=== PATIENT | male | born 1960 | race Caucasian/White ===

== ENCOUNTER 2021-09-18 08:47 | Outpatient (REF) | payer OTHER, SELFPAY ==
--- NOTE | ~2021-09-18 | US_ITS ---
EXAMINATION: US ABDOMEN COMPLETE CLINICAL INFORMATION: Epigastric pain. COMPARISON: None TECHNIQUE: Real-time imaging of the abdominal viscera. FINDINGS: PANCREAS: Normal. ABDOMINAL AORTA: The proximal, mid, and distal segments are normal in caliber. INFERIOR VENA CAVA: Visualized portions are normal. LIVER: The liver is normal in size. The liver contour is normal. There is diffuse increased liver parenchymal echogenicity, consistent with steatosis or other infiltrative hepatocellular disease. No focal hepatic lesion. There is no intrahepatic biliary duct dilatation seen. GALLBLADDER: Normal. The gallbladder is physiologically distended without evidence of stones, sludge, polyps, wall thickening or pericholecystic fluid. COMMON BILE DUCT: Normal in caliber measuring 0.5 cm in diameter. RIGHT KIDNEY: Normal. No hydronephrosis. No renal calculi or focal parenchymal lesions. The kidney measures 9.4 cm in maximum dimension. LEFT KIDNEY: Normal. No hydronephrosis. No renal calculi or focal parenchymal lesions. The kidney measures 9.6 cm in maximum dimension. SPLEEN: Normal. The spleen measures 10.3 cm in maximum dimension. FREE FLUID: None. US/US abdomen complete IMPRESSION: Hypoechoic, heterogeneous liver parenchyma suggesting steatosis or other infiltrative hepatocellular disease.
== END 2021-09-18 08:48 | disposition home or self-care (01) ==
LOC: HO.HMGCX 08:47
PROVIDERS: PCP Internal Medicine; Visit Provider Internal Medicine
DX: R10.13 Epigastric pain (principal)
CPT/HCPCS: 76700

== ENCOUNTER 2021-10-02 10:03 | Outpatient (REF) | payer OTHER, SELFPAY ==
[2021-10-02 12:10] LABS: Alanine Aminotransferase 24 U/L (0-40); Anion Gap 16 (12-20); Aspartate Amino Transferase 25 U/L (5-37); Blood Urea Nitrogen 12 mg/dL (9-16); Calcium 9.9 mg/dL (8.4-10.2); Carbon Dioxide 26 mmol/L (22-29); Chloride 96 mmol/L (96-108); Cholesterol 271 mg/dL; Estimated Glomerular Filt Rate > 60; Glucose Fasting 109 mg/dL (60-99); HDL Cholesterol 88 mg/dL; LDL Cholesterol Calculated 166 mg/dl; Potassium 4.9 mmol/L (3.3-5.1); Sodium 133 mmol/L (135-145); Triglycerides 88 mg/dL
[2021-10-02 12:17] LABS: PSA,Total (Free>4and<10) 1.37 ng/mL (0.00-4.00)
== END 2021-10-02 10:04 | disposition home or self-care (01) ==
LOC: HO.HMGCLDS 10:03
PROVIDERS: PCP Internal Medicine; Visit Provider Internal Medicine
DX: Z00.01 Encounter for general adult medical examination with abnormal findings (principal); Z12.5 Encounter for screening for malignant neoplasm of prostate; I10 Essential (primary) hypertension; E78.5 Hyperlipidemia, unspecified; R73.01 Impaired fasting glucose
CPT/HCPCS: 36415; 80048; 80061; 84153; 84450; 84460

== ENCOUNTER 2021-10-29 07:21 | Day surgery (SDC) | payer OTHER, SELFPAY ==
[2021-09-24 11:59] VITALS: BMI 27.8
--- NOTE | 2021-10-26 13:31 | P.CONAN_ITS ---
Documented by User: Marie Castaneda NP 10/26/21 13:32 HPI - Anesthesia Eval Consult details Narrative: 60yo M for Upper Endoscopy and Colonoscopy [facility] Active Problems Active Problems: All Active Problems (Updated 09/21/21 @ 15:14 by Anuradha Rajan RN) Impaired fasting glucose (Acute) COPD (chronic obstructive pulmonary disease) (Acute) Dyslipidemia (Acute) Essential hypertension (Acute) IBS (irritable bowel syndrome) (Acute) Heartburn symptom (Acute) Past Medical History Medical History Arthritis COPD (chronic obstructive pulmonary disease) Dyslipidemia Essential hypertension GERD (gastroesophageal reflux disease) Heartburn symptom IBS (irritable bowel syndrome) Impaired fasting glucose Tubular adenoma of colon Family History Family History Mother Colon cancer Surgical History Surgical History Hx of colonoscopy Hx of repair of rotator cuff Social History Social History Housing: House Patient Tobacco Use Status: Former Tobacco user Quit Date: 15 years ago Years Smoked: 30 yrs e-Cigarette/Vaping Use: Never Used Use of substances other than those prescribed or required for medical reasons: No Are you DNR?: No Advance Directives: No Advance Directives Information Provided: No Advance Directives on File: No service: No Current occupational status: employed Meds Allergies Allergy/AdvReac Type Severity Reaction Status Date / Time No Known Allergies Allergy Verified 10/29/21 08:25 [No Known Allergies*] Home Medications Medication Instructions Recorded Confirmed Last Taken Type amlodipine 10 mg tablet 10 mg PO DAILY 06/21/21 10/02/21 Unknown History Exam Exam Date and Time: October 26, 2021 1331 Height,Weight and Vital Signs: Height 5 ft 8.25 in Weight 83.461 kg Assessment and Plan Assessment Anesthesia Assessment: Chart Reviewed Documented by User: Melany Palma MD 10/29/21 08:37 [facility] Active Problems Active Problems: All Active Problems (Updated 09/21/21 @ 15:14 by Anuradha Rajan RN) Impaired fasting glucose (Acute) COPD (chronic obstructive pulmonary disease) (Acute) Dyslipidemia (Acute) Essential hypertension (Acute) IBS (irritable bowel syndrome) (Acute) Heartburn symptom (Acute) Past Medical History Medical History Arthritis COPD (chronic obstructive pulmonary disease) Dyslipidemia Essential hypertension GERD (gastroesophageal reflux disease) Heartburn symptom IBS (irritable bowel syndrome) Impaired fasting glucose Tubular adenoma of colon Family History Family History Mother Colon cancer Family history of problems with anesthesia: No Surgical History Surgical History Hx of colonoscopy Hx of repair of rotator cuff History of Problems with Anesthesia: No Social History Social History Housing: House Patient Tobacco Use Status: Former Tobacco user Quit Date: 15 years ago Years Smoked: 30 yrs e-Cigarette/Vaping Use: Never Used Use of substances other than those prescribed or required for medical reasons: No Are you DNR?: No Advance Directives: No Advance Directives Information Provided: No Advance Directives on File: No service: No Current occupational status: employed Meds Allergies Allergy/AdvReac Type Severity Reaction Status Date / Time No Known Allergies Allergy Verified 10/29/21 08:25 [No Known Allergies*] Home Medications Medication Instructions Recorded Confirmed Last Taken Type amlodipine 10 mg tablet 10 mg PO DAILY 06/21/21 10/02/21 Unknown History Exam Height,Weight and Vital Signs: Height 5 ft 8.25 in Weight 83.461 kg Vital Signs Temp Pulse Resp BP Pulse Ox 10/29/21 07:51 98.6 F 88 18 157/78 H 97 Airway Mallampati Class: II TM Dist: >3cm Neck ROM: Full Heart: RRR Lungs: Bilateral wheezes. Did not use his inhaler this morning Assessment and Plan Assessment Anesthesia Assessment: Anesthesia Plan Discussed Final Anesthetic Review Family History of Problems with Anesthesia: No History of Problems with Anesthesia: No NPO: Yes ASA Class: II Final Preanesthetic Review: No Changes in Pt Med Stat, Meds/Allgs Chart Reviewed, Consent Obtained/Reviewed and Anes Risks/Benef Reviewed Patient Risk: Intermediate Procedure Risk: Low Assessment/Block/Sedation in SS: Assess/Block/Sedation-SS Anesthetic Plan Anesthetic Plan: MAC: Disposition: Standard PACU
[2021-10-29 07:51] VITALS: BP 157/78; PULSE 88; RESP 18; TEMP 37; O2SAT 97
[2021-10-29] MEDS: Lactated Ringers 1,000 ML 100 ML IVCONT (08:21)
[2021-10-29] MEDS: Albuterol Sulfate (0.083%) 2.5 MG/3 ML VIAL.NEB INHALE (08:49)
[2021-10-29 09:46] VITALS: BP 88/52; PULSE 78; RESP 16; TEMP 36.3; O2SAT 98
--- NOTE | 2021-10-29 09:52 | P.BOP_ITS ---
Brief Operative Note Date of Service: 10/29/21 Pre-op diagnosis: Abd. pain, Screening Post-op diagnosis: other (Inflammatory mass at EG Junction, Hiatal hernia, Rectal polyps) Procedure: EGD with biopsies, Colonoscopy to the cecum and TI with biopsy/removal of polyps Surgeon: Frandy Child Anesthesia: MAC Was an Equipment Operator/Laborer/Supervisor used for this Procedure?: No Estimated blood loss (mL): 2.0 Pathology: other (A. Mass at EG Junction at 38cm B. Rectal polyps) Condition: stable Disposition: PACU
[2021-10-29 10:01] VITALS: BP 124/66; PULSE 74; RESP 16; TEMP 36.3; O2SAT 95
--- NOTE | 2021-10-29 10:59 | OP_ITS ---
SURGEON: Frandy Child MD INDICATIONS: The patient presents for evaluation of abdominal discomfort, personal history of tubular adenoma of the colon, and colorectal cancer screening. Full consent has been obtained from him for this, including risks of bleeding and perforation. PREOPERATIVE DIAGNOSIS: POSTOPERATIVE DIAGNOSIS: PROCEDURE PERFORMED: Esophagogastroduodenoscopy with biopsies and colonoscopy to cecum and terminal ileum with biopsy and removal of polyps. ESTIMATED BLOOD LOSS: COMPLICATIONS: ANESTHESIA: Monitored anesthesia care. ASSISTANTS: SPECIMENS: PREOPERATIVE DIAGNOSES: Abdominal pain, personal history of tubular adenoma of the colon, and colorectal cancer screening. POSTOPERATIVE DIAGNOSES: Abdominal pain, personal history of tubular adenoma of the colon, colorectal cancer screening, gastroesophageal reflux with ulceration and mass at gastroesophageal junction, hiatal hernia, rectal polyps, diverticulosis, and internal hemorrhoids. DESCRIPTION OF PROCEDURE: The patient was placed in the left lateral decubitus position. The Olympus video gastroscope was passed into the posterior oropharynx and upper esophagus under direct vision. The scope was passed slowly into the distal esophagus. The gastroesophageal junction appeared at 38 cm. This area was slightly irregular with some less than 1 cm areas of possible Mathew mucosa. Extending from the EG junction at 38 cm into the hiatal hernia was an area of some ulceration, friability, and edema suspicious for mass. This was at approximately the 12 o'clock position at the EG junction and extended into the hiatal hernia along the fold. It was by no means circumferential nor obstructing. The remainder of the hiatal hernia, which was moderate in size, appeared normal. The scope was advanced to the pylorus, and the duodenum was cannulated to the descending portion. The duodenum including the bulb appeared normal without mass or ulceration. The scope was withdrawn back to the stomach. The gastric antrum and body appeared normal with good peristalsis. The scope was retroflexed visualizing the proximal stomach carefully, which appeared normal without any definitive visible signs of the mass. The scope was straightened. In the forward viewing position, the mass was well visualized and multiple biopsies were obtained from it. Again, this began just at the EG junction and extended several centimeters into the hiatal hernia. Proximal to the EG junction, the esophageal mucosa appeared normal. The scope was withdrawn from the patient. He tolerated the procedure well and was turned around for the colonoscopy. The digital rectal exam revealed no abnormalities. The Olympus video pediatric colonoscope was entered into the rectum and advanced easily to the cecum. Once in the cecum, I did identify normal-appearing cecal pouch with appendiceal orifice and a normal-appearing ileocecal valve. The terminal ileum was cannulated and appeared normal. The scope was withdrawn back in the colon. The entire cecum and ileocecal valve appeared normal. The scope was slowly withdrawn assessing all mucosal surfaces carefully. Preparation was excellent. In the rectum were 2 flat less than 5 mm polyps, which were each biopsied and completely removed with cold biopsy forceps. I did not visualize any other polyps, colitis, or angiodysplasias. There was a mild amount of sigmoid diverticulosis. In the rectum, the scope was retroflexed visualizing small internal hemorrhoids, but no other pathology. The rectal mucosa appeared normal. The scope was straightened and withdrawn from the patient. He tolerated both procedures well and was returned to the recovery area in stable condition. IMPRESSION: 1. Ulcerated area from esophagogastric junction into the hiatal hernia, suspicious for mass and neoplasm, status post biopsy. 2. Moderate-sized hiatal hernia. 3. Small rectal polyps. 4. Diverticulosis. 5. Internal hemorrhoids. PLAN: The results of the pathology will be checked. He has been using omeprazole 20 mg daily and I have instructed him to use that twice a day for the time being. Further plans will be made depending upon the pathology. I would recommend a repeat colonoscopy in 5 years theoretically in regard to the previous history of tubular adenomas. He has been advised to avoid all aspirin and NSAIDs, as well as to try to avoid alcohol completely as well. This has been discussed with his . MD JOVANNY Hernandez/SUNDEEP / [id number] MTDRemy
== END 2021-10-29 10:36 | disposition home or self-care (01) ==
PROVIDERS: PCP Internal Medicine; Visit Provider Internal Medicine
PROC: (CPT 45380; principal; 2021-10-29 08:30)
DX: Z12.11 Encounter for screening for malignant neoplasm of colon (principal); Z86.010 Personal history of colon polyps; Z80.0 Family history of malignant neoplasm of digestive organs; K62.1 Rectal polyp; K57.30 Diverticulosis of large intestine without perforation or abscess without bleeding; K64.8 Other hemorrhoids; C16.0 Malignant neoplasm of cardia; R10.13 Epigastric pain; K44.9 Diaphragmatic hernia without obstruction or gangrene; I10 Essential (primary) hypertension; J44.9 Chronic obstructive pulmonary disease, unspecified; Z79.899 Other long term (current) drug therapy; Z87.891 Personal history of nicotine dependence
CPT/HCPCS: 45380; 43239; 36415; 88305; 88360; 88374; 88377; J3010

== ENCOUNTER 2021-11-01 16:47 | Outpatient (REF) | payer OTHER, SELFPAY ==
[2021-11-01 17:19] LABS: Basophils Absolute Auto 0.1 X10*3/uL (0.0-0.2); Basophils Percent Auto 0.5 % (0-2); Eosinophils Absolute Auto 0.1 X10*3/uL (0.0-0.4); Hematocrit 41.4 % (42.0-52.0); Hemoglobin 14.6 g/dl (14.0-18.0); Imm Gran Abs Auto 0.09 X10*3/uL (0.00-0.03); Imm Gran Pct Auto 0.7 % (0.0-0.4); Lymphocytes Absolute Auto 2.3 X10*3/uL (1.2-4.9); Lymphocytes Percent Auto 19.3 % (20-40); MANUAL DIFF FLAG SCAN; Mean Corpuscular HGB Conc 35.3 g/dl (31.0-36.0); Mean Corpuscular Hemoglobin 30.7 pg (27.0-33.0); Mean Corpuscular Volume 87.2 fL (80.0-98.0); Mean Platelet Volume 9.5 fL (9.4-12.4); Monocytes Absolute Auto 1.6 X10*3/uL (0.1-1.2); Monocytes Percent Auto 13.2 % (2-11); Neutrophils Absolute Auto 7.9 x10*3/uL (2.0-8.3); Neutrophils Percent Auto 65.3 % (45-73); Platelet Count 332 X10*3/uL (160-400); Red Blood Count 4.75 X10*6/uL (4.60-5.80); Red Cell Distribution Width 13.2 % (11.0-16.0); SCAN SMEAR FLAG 1; White Blood Count 12.1 X10*3/uL (4.8-10.8)
[2021-11-01 17:43] LABS: Alanine Aminotransferase 24 U/L (0-40); Albumin Level 4.5 g/dL (3.5-5.0); Alkaline Phosphatase 88 U/L (39-117); Aspartate Amino Transferase 23 U/L (5-37); Bilirubin Direct 0.3 mg/dL (0.0-0.5); Bilirubin Total 0.5 mg/dL (0.0-1.0); Blood Urea Nitrogen 13 mg/dL (9-16); Estimated Glomerular Filt Rate > 60; Total Protein 7.9 g/dL (6.5-8.0)
[2021-11-01 17:48] LABS: SLIDE REVIEW VERIFIED
== END 2021-11-01 16:48 | disposition home or self-care (01) ==
LOC: HO.LAB 16:47
PROVIDERS: PCP Internal Medicine; Visit Provider Internal Medicine
DX: C16.0 Malignant neoplasm of cardia (principal)
CPT/HCPCS: 36415; 80076; 82378; 82565; 84520; 85025

== ENCOUNTER 2021-11-07 11:53 | Outpatient (REF) | payer OTHER, SELFPAY ==
--- NOTE | ~2021-11-07 | CT_ITS ---
EXAMINATION: CT CHEST WITH CONTRAST CLINICAL INFORMATION: Malignant neoplasm of stomach COMPARISON: Previous chest CT December 2012 TECHNIQUE: Multidetector volumetric CT imaging of the chest was obtained after the administration of 85 mL of Omnipaque 350 intravenous contrast without immediate adverse reactions. Axial MIP volume rendering provided. Sagittal and coronal reformatted images were obtained. This CT examination was performed using dose optimization techniques as appropriate, variously including the following: *Automated exposure control *Adjustment of mA and/or kV according to patient size (this includes techniques or standardized protocols for targeted exams where dose is matched to indication/reason for exam; i.e. extremities or head) *Use of iterative reconstruction technique DLP: 172 mGy-cm FINDINGS: LUNGS: There is evidence of emphysema. There is a scarring or subsegmental atelectasis in the left lower lobe axial image 250 series 4. This is a new finding from December 2012 exam. There is linear scarring or subsegmental atelectasis in the lateral left lower lobe for example axial image 300 series 4 that is stable. There is linear scarring or subsegmental atelectasis in the posterior left lower lobe for example axial image 302 series 4 and at the left lung base for example axial image 411 series 4 that is new or increased from 2013. MEDIASTINUM: There is mild coronary artery calcification. There is abnormal wall thickening and question mass of the distal thoracic esophagus/upper stomach, for example coronal reconstructed images 43-45 and sagittal reconstructed image 56. There are no enlarged hilar or mediastinal lymph nodes. The heart does not appear enlarged. There is mild coronary artery calcification. There is no pericardial effusion. The thoracic aorta is normal in caliber. The visualized thyroid gland is normal. PLEURA: There is no pleural effusion. No pleural mass or thickening. AXILLA: No lymphadenopathy. UPPER ABDOMEN: See CT of the abdomen and pelvis done the same day. OSSEOUS STRUCTURES: There are old left-sided rib fractures. There are mild degenerative changes of the spine. CT/CT chest w con IMPRESSION: Abnormal wall thickening and question mass of the distal thoracic esophagus/proximal stomach. No adenopathy is seen. Emphysema. New areas of linear scarring or subsegmental atelectasis in the left lower lobe. Fleischner guidelines were followed.
--- NOTE | ~2021-11-07 | CT_ITS ---
EXAMINATION: CT ABDOMEN AND PELVIS WITH CONTRAST CLINICAL INFORMATION: Malignant neoplasm of cardia. COMPARISON: None TECHNIQUE: Multidetector volumetric images were obtained from the superior aspect of the liver through the pubic symphysis following administration 85 mL of Omnipaque 350 intravenous contrast. Sagittal and coronal reformatted images were obtained on the technologist's workstation. Oral contrast: No. This CT examination was performed using dose optimization techniques as appropriate, variously including the following: *Automated exposure control *Adjustment of mA and/or kV according to patient size (this includes techniques or standardized protocols for targeted exams where dose is matched to indication/reason for exam; i.e. extremities or head) *Use of iterative reconstruction technique DLP: 522 mGy-cm FINDINGS: LUNG BASES: Minimal atelectasis or scarring seen at the left lung base. Heart size is normal. There is mild thickening of the distal esophagus/GE junction. LIVER, GALLBLADDER, AND BILIARY TREE: The liver is normal in size, shape, and diffusely attenuated. No focal hepatic lesion or biliary ductal dilatation is present. The gallbladder is unremarkable with no evidence of radiopaque gallstones, gallbladder wall thickening, or obvious pericholecystic inflammatory changes. PANCREAS: Unremarkable. SPLEEN: Unremarkable. ADRENAL GLANDS: Unremarkable. KIDNEYS AND URETERS: The kidneys are normal in size, shape, and attenuation. No hydronephrosis, hydroureter, or calculi seen. No perinephric stranding. BLADDER: The bladder is nondistended with mild bladder wall thickening. GASTROINTESTINAL TRACT: There is mild mural thickening of small bowel segment in the left midabdomen visualized on coronal image 23/6. It most likely involves mid jejunum and distal ileal loops. There is contrast opacified normal caliber colon without any significant mural thickening. The appendix is normal caliber. No free air or free fluid seen. ABDOMINAL WALL: No significant hernia is appreciated. LYMPH NODES: There are small scattered mesenteric lymph nodes. The largest lymph node measures 5 mm on axial image 37/3. VASCULAR: There is atherosclerotic calcification of the abdominal aorta without aneurysmal dilatation. PELVIC VISCERA: There is no free air or free fluid. OSSEOUS STRUCTURES: There are degenerative disc changes and vacuum disc phenomena at the L5-S1 disc level. CT/CT abdomen pelvis w con IMPRESSION: Mild thickening of the GE junction and distal esophagus. The rest of the stomach appears normal. There is mild nonspecific mural thickening of mid jejunal and distal ileal loops without distention. No abnormal mesenteric or retroperitoneal lymph nodes seen. Fleischner guidelines were followed.
[2021-11-07] MEDS: iohexoL 350 MG/ML 100 ML INFUS..BTL IV (14:55)
[2021-11-07] MEDS: Barium Sulfate Oral (Berry) 450 ML ORAL.SUSP 900 ML PO (14:57)
== END 2021-11-07 11:54 | disposition home or self-care (01) ==
LOC: HO.CT 11:53
PROVIDERS: PCP Internal Medicine; Visit Provider Internal Medicine
DX: C16.0 Malignant neoplasm of cardia (principal)
CPT/HCPCS: 71260; 74177; Q9967

== ENCOUNTER 2022-09-10 08:35 | Outpatient (REF) | payer OTHER, SELFPAY ==
[2022-09-10 11:11] LABS: MANUAL DIFF FLAG NO
[2022-09-10 11:31] LABS: Basophils Percent Auto 0.4 % (0-2); Eosinophils Absolute Auto 0.2 X10*3/uL (0.0-0.4); Eosinophils Percent Auto 1.9 % (0-4); Hemoglobin 13.4 g/dl (14.0-18.0); Imm Gran Abs Auto 0.05 X10*3/uL (0.00-0.03); Imm Gran Pct Auto 0.6 % (0.0-0.4); Mean Corpuscular HGB Conc 34.4 g/dl (31.0-36.0); Mean Corpuscular Hemoglobin 29.8 pg (27.0-33.0); Mean Corpuscular Volume 86.9 fL (80.0-98.0); Mean Platelet Volume 9.9 fL (9.4-12.4); Monocytes Absolute Auto 1.1 X10*3/uL (0.1-1.2); Monocytes Percent Auto 13.5 % (2-11); Neutrophils Absolute Auto 5.5 x10*3/uL (2.0-8.3); Neutrophils Percent Auto 70.6 % (45-73); Platelet Count 331 X10*3/uL (160-400); Red Blood Count 4.49 X10*6/uL (4.60-5.80); Red Cell Distribution Width 13.1 % (11.0-16.0); White Blood Count 7.8 X10*3/uL (4.8-10.8)
[2022-09-10 13:19] LABS: Alanine Aminotransferase 25 U/L (0-40); Albumin Level 4.2 g/dL (3.5-5.0); Alkaline Phosphatase 130 U/L (39-117); Anion Gap 13 (12-20); Aspartate Amino Transferase 21 U/L (5-37); Bilirubin Total 0.5 mg/dL (0.0-1.0); Blood Urea Nitrogen 7 mg/dL (9-16); Calcium 9.5 mg/dL (8.4-10.2); Carbon Dioxide 26 mmol/L (22-29); Chloride 96 mmol/L (96-108); Cholesterol 229 mg/dL; Estimated Glomerular Filt Rate > 60; Glucose Fasting 80 mg/dL (60-99); HDL Cholesterol 45 mg/dL; Iron 97 mcg/dL (45-160); LDL Cholesterol Calculated 141 mg/dl; Percent Iron Saturation 40 % (15-50); Potassium 4.5 mmol/L (3.3-5.1); Sodium 130 mmol/L (135-145); Total Iron Binding Capacity 244 mcg/dL (228-428); Triglycerides 216 mg/dL; Unsaturated Iron Binding 147 ug/dL; Vitamin D 25-OH Total 14.8 ng/mL (>30)
[2022-09-10 13:29] LABS: Folate 9.7 ng/mL (> or = 4.0); Vitamin B12 258 pg/mL (200-900)
== END 2022-09-10 08:36 | disposition home or self-care (01) ==
LOC: HO.HMGCLDS 08:35
PROVIDERS: PCP Internal Medicine; Visit Provider Internal Medicine
DX: M79.2 Neuralgia and neuritis, unspecified (principal); D64.9 Anemia, unspecified; R73.01 Impaired fasting glucose; I10 Essential (primary) hypertension; E78.5 Hyperlipidemia, unspecified
CPT/HCPCS: 36415; 80053; 80061; 82306; 82607; 82746; 83540; 85025

== ENCOUNTER 2022-11-11 07:45 | Outpatient (REF) | payer OTHER, SELFPAY ==
[2022-11-11 11:52] LABS: MANUAL DIFF FLAG NO
[2022-11-11 12:14] LABS: Basophils Percent Auto 0.4 % (0-2); Eosinophils Absolute Auto 0.1 X10*3/uL (0.0-0.4); Eosinophils Percent Auto 1.8 % (0-4); Hematocrit 41.4 % (42.0-52.0); Hemoglobin 14.6 g/dl (14.0-18.0); Imm Gran Abs Auto 0.04 X10*3/uL (0.00-0.03); Imm Gran Pct Auto 0.5 % (0.0-0.4); Lymphocytes Absolute Auto 1.2 X10*3/uL (1.2-4.9); Lymphocytes Percent Auto 15.3 % (20-40); Mean Corpuscular HGB Conc 35.3 g/dl (31.0-36.0); Mean Corpuscular Hemoglobin 30.2 pg (27.0-33.0); Mean Corpuscular Volume 85.7 fL (80.0-98.0); Mean Platelet Volume 10.2 fL (9.4-12.4); Monocytes Absolute Auto 1.1 X10*3/uL (0.1-1.2); Monocytes Percent Auto 13.9 % (2-11); Neutrophils Absolute Auto 5.4 x10*3/uL (2.0-8.3); Neutrophils Percent Auto 68.1 % (45-73); Platelet Count 335 X10*3/uL (160-400); Red Blood Count 4.83 X10*6/uL (4.60-5.80); Red Cell Distribution Width 12.5 % (11.0-16.0); White Blood Count 7.9 X10*3/uL (4.8-10.8)
[2022-11-11 12:40] LABS: Anion Gap 12 (12-20); Blood Urea Nitrogen 12 mg/dL (9-16); Calcium 9.7 mg/dL (8.4-10.2); Carbon Dioxide 29 mmol/L (22-29); Chloride 97 mmol/L (96-108); Cholesterol 239 mg/dL; Estimated Glomerular Filt Rate > 60; Glucose Fasting 93 mg/dL (60-99); HDL Cholesterol 50 mg/dL; Iron 95 mcg/dL (45-160); LDL Cholesterol Calculated 153 mg/dl; Percent Iron Saturation 38 % (15-50); Potassium 5.1 mmol/L (3.3-5.1); Sodium 133 mmol/L (135-145); Total Iron Binding Capacity 249 mcg/dL (228-428); Triglycerides 180 mg/dL; Unsaturated Iron Binding 154 ug/dL
[2022-11-11 12:47] LABS: Vitamin D 25-OH Total 49.1 ng/mL (>30)
== END 2022-11-11 07:46 | disposition home or self-care (01) ==
LOC: HO.HMGCLDS 07:45
PROVIDERS: PCP Internal Medicine; Visit Provider Internal Medicine
DX: D64.9 Anemia, unspecified (principal); E55.9 Vitamin D deficiency, unspecified; E87.1 Hypo-osmolality and hyponatremia; I10 Essential (primary) hypertension; E78.5 Hyperlipidemia, unspecified
CPT/HCPCS: 36415; 80048; 80061; 82306; 83540; 85025

== ENCOUNTER 2023-04-16 11:00 | Outpatient (AMB) | payer OTHER, SELFPAY ==
[2023-04-16 11:50] VITALS: BP 140/80; PULSE 73; O2SAT 96; BMI 21.9
--- NOTE | 2023-04-16 11:50 | A.OFFPC_ITS ---
<Statement entered by Erin Ceja MD - 10/17/25 00:05> This note has been administratively?closed. Vital Signs 04/16/23 11:50 Height 5 ft 8 in Weight 144 lb BMI 21.9 BP 140/80 H Blood Pressure Location Rt brachial Position Sitting Pulse 73 Pulse Source Pulse Oximeter Pulse Oximetry (%) 96 Oxygen Delivery Method Room Air Intake Visit Reasons: 6 Month follow up Intake Note: Pt is here today for her 6 months f/u Allergies No Known Allergies (No Known Allergies*) Allergy (Verified 04/18/25 09:04) Medication List - Last Reconciled 04/16/23 by Erin Ceja MD acetaminophen (Tylenol Extra Strength) 1,000 mg PO Q6H PRN cholecalciferol (vitamin D3) 50 mcg PO DAILY famotidine 20 mg PO BID ferrous sulfate 325 mg PO DAILY gabapentin 300 mg PO BID Tobacco use date assessed: 04/16/23 Dental Screening Dental Screen Date: 04/16/23 Did you have a dental visit in the last 12 months?: Yes Did you have a dental problem in the last 6 months where you did not have access to dental care?: Yes Was dental information given to patient?: Patient has dentist [facility] Medical History Degenerative disc disease, cervical History of esophageal cancer Hyponatremia Vitamin D deficiency Mild intermittent asthma Neuropathic pain Anemia History of chemotherapy Finger laceration Arthritis GERD (gastroesophageal reflux disease) Impaired fasting glucose COPD (chronic obstructive pulmonary disease) Dyslipidemia Essential hypertension Tubular adenoma of colon IBS (irritable bowel syndrome) Heartburn symptom Surgical History History of esophagectomy Hx of repair of rotator cuff Hx of colonoscopy Family History Mother Colon cancer Social History Housing: House Patient Tobacco Use Status: Former Tobacco user Years Smoked: 30 yrs e-Cigarette/Vaping Use: Never Used Second Hand Smoke Exposure: No service: No Current occupational status: employed Current occupational exposures/hazards: No Cognitive needs: No Hearing needs: No Vision needs: Yes Questionnaire Thrive Questionnaire Date Thrive assessed: 12/02/22 AUDIT C Alcohol Use Questionnaire (AUDIT-C) 1. How often do you have a drink containing alcohol?: Never Total Score: 0 SOREN-7 AMB Questionnaire SOREN-7 Date SOREN - 7 assessed: 12/02/22 Source: Developed by Drs. Frandy Noriega, Vania Flynn, George Summers and colleagues, with an educational faizan from [employer]. Physical exam (Primary Care) Vital Signs: Last Vital Signs Pulse 73 04/16/23 11:50 BP 140/80 H 04/16/23 11:50 Pulse Ox 96 04/16/23 11:50 Oxygen Delivery Method Room Air 04/16/23 11:50 BMI result Body Mass Index 21.9 Tobacco/Smoking Status: Tobacco use Status Tobacco use date assessed 04/16/23 04/16/23 12:03 Patient Tobacco Use Status Former Tobacco user 04/16/23 11:55 e-Cigarette/Vaping Use Never Used 04/16/23 11:55 Thrive Assessment: Date of Thrive Assessment Date Thrive assessed 12/02/22 04/16/23 11:55 Coding Level of Care Code Admin Sign Off/No Billing Diagnoses Hyponatremia E87.1 Impaired fasting glucose R73.01 Dyslipidemia E78.5 Essential hypertension I10
== END 2023-04-16 13:25 | disposition home or self-care (01) ==
PROVIDERS: Visit Provider Internal Medicine
DX: E87.1 Hypo-osmolality and hyponatremia (principal); R73.01 Impaired fasting glucose; E78.5 Hyperlipidemia, unspecified; I10 Essential (primary) hypertension
CPT/HCPCS: 99499

== ENCOUNTER 2023-04-21 07:23 | Outpatient (REF) | payer OTHER, SELFPAY ==
[2023-04-21 12:21] LABS: Alanine Aminotransferase 32 U/L (0-40); Albumin Level 4.2 g/dL (3.5-5.0); Alkaline Phosphatase 134 U/L (39-117); Anion Gap 16 (12-20); Aspartate Amino Transferase 28 U/L (5-37); Bilirubin Total 0.5 mg/dL (0.0-1.0); Blood Urea Nitrogen 8 mg/dL (9-16); Calcium 9.6 mg/dL (8.4-10.2); Carbon Dioxide 22 mmol/L (22-29); Chloride 99 mmol/L (96-108); Cholesterol 239 mg/dL; Estimated Glomerular Filt Rate > 60; Glucose Fasting 87 mg/dL (60-99); HDL Cholesterol 54 mg/dL; LDL Cholesterol Calculated 144 mg/dl; Potassium 4.5 mmol/L (3.3-5.1); Sodium 132 mmol/L (135-145); Total Protein 7.4 g/dL (6.5-8.0); Triglycerides 209 mg/dL
== END 2023-04-21 07:24 | disposition home or self-care (01) ==
LOC: HO.HMGCLDS 07:23
PROVIDERS: PCP Internal Medicine; Visit Provider Internal Medicine
DX: Z12.5 Encounter for screening for malignant neoplasm of prostate (principal); E78.5 Hyperlipidemia, unspecified; E87.1 Hypo-osmolality and hyponatremia; R73.01 Impaired fasting glucose; I10 Essential (primary) hypertension
CPT/HCPCS: 36415; 80053; 80061; 84153

== ENCOUNTER 2024-03-04 08:20 | Outpatient (AMB) | payer OTHER, SELFPAY ==
--- NOTE | 2024-03-04 08:21 | A.OFFPC_ITS ---
Vital Signs 03/04/24 08:23 Height 5 ft 8 in Weight 151 lb BMI 23.0 BP 138/80 Blood Pressure Location Rt brachial Position Sitting Pulse 68 Pulse Source Pulse Oximeter Pulse Oximetry (%) 98 Oxygen Delivery Method Room Air Intake Visit Reasons: PE Intake Note: Patient here for physical exam. Allergies No Known Allergies [No Known Allergies*] Allergy (Verified 03/04/24 09:07) Medication List - Last Reconciled 03/04/24 by Erin Ceja MD acetaminophen (Tylenol Extra Strength) 1,000 mg PO Q6H PRN cholecalciferol (vitamin D3) 50 mcg PO DAILY famotidine 20 mg PO BID ferrous sulfate 325 mg PO DAILY gabapentin 300 mg PO BID Tobacco use date assessed: 03/04/24 Dental Screening Dental Screen Date: 03/04/24 Did you have a dental visit in the last 12 months?: Yes Did you have a dental problem in the last 6 months where you did not have access to dental care?: No Was dental information given to patient?: Patient has dentist HPI PE HPI Details 62-year-old male with past medical histo ry of stage II adenocarcinoma of esophagus s/p radiation and chemotherapy, completed in February 2022, underwent esophagectomy 04/08/2022, has COPD, hypertension, arthritis, anemia, mild intermittent asthma, and history of tubular adenoma removed on last colonoscopy, here today for his physical exam. He has been feeling well, able to tolerate regular diet, last colonoscopy was done in 2018, with removal of a tubular adenoma by Dr. Child.. Patient is aware that he is due for a recheck [facility] Medical History Lesion of throat Hyponatremia Vitamin D deficiency Mild intermittent asthma Neuropathic pain Anemia History of chemotherapy Adenocarcinoma of esophagus Finger laceration Arthritis GERD (gastroesophageal reflux disease) Impaired fasting glucose COPD (chronic obstructive pulmonary disease) Dyslipidemia Essential hypertension Tubular adenoma of colon IBS (irritable bowel syndrome) Heartburn symptom Surgical History History of esophagectomy Hx of repair of rotator cuff Hx of colonoscopy Family History Mother Colon cancer Social History Housing: House Patient Tobacco Use Status: Former Tobacco user Years Smoked: 30 yrs e-Cigarette/Vaping Use: Never Used Second Hand Smoke Exposure: No service: No Current occupational status: employed Current occupational exposures/hazards: No Cognitive needs: No Hearing needs: No Vision needs: Yes Questionnaire PHQ-9 Over the last 2 weeks, how often have you been bothered by any of the following problems? 1. Little interest or pleasure in doing things: not at all 2. Feeling down, depressed, or hopeless: not at all 3. Trouble falling or staying asleep, or sleeping too much: not at all 4. Feeling tired or having little energy: not at all 5. Poor appetite or overeating: not at all 6. Feeling bad about yourself - or that you are a failure or have let yourself or your family down: not at all 7. Trouble concentrating on things, such as reading the newspaper or watching television: not at all 8. Moving or speaking so slowly that other people could have noticed. Or the opposite - being so fidgety or restless that you have been moving around a lot more than usual: not at all 9. Thoughts that you would be better off or of hurting yourself in some way: not at all Total score: 0 Depression Screening Interpretation: Negative Depression Screening Done: Yes 46218 - PHQ-9 Billing: Yes Source: Developed by Drs. Frandy Noriega, Vania Flynn, George Summers and colleagues, with an educational faizan from [employer]. Thrive Questionnaire Date Thrive assessed: 03/04/24 I am a: Patient What is your living situation today?: I have a steady place to live Within the past 12 months, did the food you bought not last and you didn't have the money to get more?: Never true Within the past 12 months, did you worry whether your food would run out before you got money to buy more?: Never true Do you have trouble paying for medicines?: No Do you have trouble getting transportation to medical appointments?: No Do you have trouble paying your heating and electricity bill?: No Do you have trouble taking care of your child, family member or friend?: No Do you have trouble with day-to-day activities such as bathing, preparing meals, shopping, managing finances, etc.?: No Are you currently unemployed and looking for a job?: No Are you interested in more education?: No THRIVE Score: 0 AUDIT C Alcohol Use Questionnaire (AUDIT-C) 1. How often do you have a drink containing alcohol?: Never 3. How often do you have six or more drinks on one occasion?: Never Total Score: 0 SOREN-7 AMB Questionnaire SOREN-7 Date SOREN - 7 assessed: 12/02/22 Feeling nervous, anxious, or on edge: 0 = Not at all Not being able to stop or control worryin = Not at all Worrying too much about different things: 0 = Not at all Trouble relaxin = Not at all Being so restless that it is hard to sit still: 0 = Not at all Becoming easily annoyed or irritable: 1 = Several days Feeling afraid as if something awful might happen: 0 = Not at all Total SOREN-7 score (0-4 normal; 5-9 mild; 10-14 moderate; 15-21 severe): 1 Source: Developed by Drs. Frandy Noriega, Vania Flynn, George Summers and colleagues, with an educational faizan from [employer]. SOREN-7 Assessment Billing SOREN-7 Assessment Tool: SOREN-7 Assessment 56709 Review of Systems Const Denies chills, Denies fever(s), Denies headache(s), Denies malaise and Denies weakness Eyes Denies change in vision ENT Denies dysphagia, Denies dizziness, Denies dry mouth, Denies headache(s), Denies nasal congestion, Denies nasal discharge and Denies sore throat Card Denies irregular heart rhythm, Denies leg edema and Denies dyspnea Resp Denies chest congestion, Denies cough and Denies dyspnea GI Denies melena, Denies bloating, Denies hematochezia, Denies change in bowel habits, Denies change in stool character, Denies dysphagia, Denies dyspepsia and Denies heartburn Reports no additional complaints Musc Denies joint swelling, Denies muscle weakness and Denies stiffness Skin/Breast Denies lesions and Denies rash Neuro Denies confusion, Denies dizziness, Denies headache(s), Denies lack of coordination and Denies weakness Psych Reports no additional complaints and Denies confusion Endo Reports no additional complaints Shen/Lymph Reports no additional complaints Aller/Immun Reports no additional complaints Physical exam (Primary Care) Vital Signs: Last Vital Signs Pulse 68 03/04/24 08:23 BP 138/80 03/04/24 08:23 Pulse Ox 98 03/04/24 08:23 Oxygen Delivery Method Room Air 03/04/24 08:23 BMI result Body Mass Index 23.0 Tobacco/Smoking Status: Tobacco use Status Tobacco use date assessed 03/04/24 03/04/24 08:26 Patient Tobacco Use Status Former Tobacco user 03/04/24 08:23 e-Cigarette/Vaping Use Never Used 03/04/24 08:23 Depression Screening Interpretation: Negative Thrive Assessment: Date of Thrive Assessment Date Thrive assessed 12/02/22 03/04/24 08:23 Const Other: Alert oriented x3, in mild pain distress, ambulatory more gait General: No confusion Orientation/consciousness: patient oriented x3 and No confusion HENMT Mouth: Normal oral and palatal mucosa present, tongue normal, oropharynx normal and moist mucous membranes Eyes General: appearance normal, both eyes and all related structures Neck Other: Supple with no lymphadenopathy full range of motion Neck: Yes no meningeal signs Chest Other: Slight tenderness on palpation over anterior chest wall, no gross bone deformity noted Resp Auscultation: clear to auscultation bilaterally Cardio Other: S1-S2 present regular rate and rhythm GI Palpation (GI): Soft to palpation, Tenderness to palpation present (GI) (Upper abdomen), no guarding and no masses General: Yes no CVA tenderness Back/Spine/Pelvis Back: no CVA tenderness and No back tenderness Skin General skin exam: no rashes or lesions noted Neuro General: patient oriented x3, gait normal, moves all extremities, Normal light touch and pain sensation, no meningeal signs, no focal motor deficits, CN's II- XI intact bilaterally and No confusion Extrem General: Yes full ROM, Yes no joint enlargement, Yes no clubbing, cyanosis or edema, Yes no calf tenderness and Yes normal gait Psych Appearance: grossly normal and well kempt Mental Status: mental status grossly normal Speech and movement: Normal speech and movement present Affect: normal affect Attitude: cooperative Thought process: Normal thought process present Thought content: Normal thought content present Assessment and Plan Assessment & Plan (1) Annual visit for general adult medical examination with abnormal findings: Code(s): Z00.01 - Encounter for general adult medical examination with abnormal findings Plan: Overdue for his colonoscopy screening, patient states she will call Dr. Child to schedule appointment. Takes not want to get a COVID vaccine today, does not want to get flu shot, but recommended to get shingles vaccine (2) Essential hypertension: Code(s): I10 - Essential (primary) hypertension Plan: Blood pressure at goal of less than 130/80. Reinforced importance of following a low sodium diet, getting regular exercise, and lowering stress levels. (3) Dyslipidemia: Code(s): E78.5 - Hyperlipidemia, unspecified Plan: Fasting lipid panel ordered, (4) Impaired fasting glucose: Code(s): R73.01 - Impaired fasting glucose Plan: Your previous fasting blood sugars were elevated above 100 mg/dL. Impaired glucose metabolism increases the risk for developing diabetes mellitus type 2, as well as heart attack and stroke later on. Lifestyle changes that promotes weight loss, healthy eating habits, and regular exercise are important, and can prevent the progression to diabetes (5) Adenocarcinoma of esophagus: Code(s): C15.9 - Malignant neoplasm of esophagus, unspecified Plan: Followed by oncology and GI clinic (6) Anemia: Code(s): D64.9 - Anemia, unspecified Plan: Ordered a repeat CBC and iron level (7) Neuropathic pain: Code(s): M79.2 - Neuralgia and neuritis, unspecified Plan: Continue gabapentin 300 mg 1 tablet twice a day (8) Vitamin D deficiency: Code(s): E55.9 - Vitamin D deficiency, unspecified Plan: Will check vitamin-D level Orders: Orders Comprehensive [place]. Panel Fast 03/04/24 E87.1 - Hypo-osmolality and hyponatremia, E55.9 - Vitamin D deficiency, unspecified, M79.2 - Neuralgia and neuritis, unspecified, D64.9 - Anemia, unspecified, C15.9 - Malignant neoplasm of esophagus, unspecified, R73.01 - Impaired fasting glucose, E78.5 - Hyperlipidemia, unspecified, I10 - Essential (primary) hypertension, Z00.01 - Encounter for general adult medical examination with abnormal findings IRON PROFILE 03/04/24 E87.1 - Hypo-osmolality and hyponatremia, E55.9 - Vitamin D deficiency, unspecified, M79.2 - Neuralgia and neuritis, unspecified, D64.9 - Anemia, unspecified, C15.9 - Malignant neoplasm of esophagus, unspecified, R73.01 - Impaired fasting glucose, E78.5 - Hyperlipidemia, unspecified, I10 - Essential (primary) hypertension, Z00.01 - Encounter for general adult medical examination with abnormal findings Complete Blood Count Auto Diff 03/04/24 E87.1 - Hypo-osmolality and hyponatremia, E55.9 - Vitamin D deficiency, unspecified, M79.2 - Neuralgia and neuritis, unspecified, D64.9 - Anemia, unspecified, C15.9 - Malignant neoplasm of esophagus, unspecified, R73.01 - Impaired fasting glucose, E78.5 - Hyperlipidemia, unspecified, I10 - Essential (primary) hypertension, Z00.01 - Encounter for general adult medical examination with abnormal findings Lipid Panel 03/04/24 E87.1 - Hypo-osmolality and hyponatremia, E55.9 - Vitamin D deficiency, unspecified, M79.2 - Neuralgia and neuritis, unspecified, D64.9 - Anemia, unspecified, C15.9 - Malignant neoplasm of esophagus, unspecified, R73.01 - Impaired fasting glucose, E78.5 - Hyperlipidemia, unspecified, I10 - Essential (primary) hypertension, Z00.01 - Encounter for general adult medical examination with abnormal findings Vitamin D 25-OH Total 03/04/24 E87.1 - Hypo-osmolality and hyponatremia, E55.9 - Vitamin D deficiency, unspecified, M79.2 - Neuralgia and neuritis, unspecified, D64.9 - Anemia, unspecified, C15.9 - Malignant neoplasm of esophagus, unspecified, R73.01 - Impaired fasting glucose, E78.5 - Hyperlipidemia, unspecified, I10 - Essential (primary) hypertension, Z00.01 - Encounter for general adult medical examination with abnormal findings Hemoglobin A1c 03/04/24 R73.01 - Impaired fasting glucose Coding Level of Care Code Est Pt Prev Care 40-64y(73758) Diagnoses Annual visit for general adult medical examination with abnormal findings Z00.01 Essential hypertension I10 Dyslipidemia E78.5 Impaired fasting glucose R73.01 Adenocarcinoma of esophagus C15.9 Anemia D64.9 Neuropathic pain M79.2 Vitamin D deficiency E55.9 Additional Codes SOREN-7 Assessment Billing - SOREN-7 Assessment Tool: SOREN-7 Assessment 87145 ([id number])
[2024-03-04 08:23] VITALS: BP 138/80; PULSE 68; O2SAT 98; BMI 23.0
== END 2024-03-04 09:41 | disposition home or self-care (01) ==
PROVIDERS: PCP Internal Medicine; Visit Provider Internal Medicine
DX: Z00.01 Encounter for general adult medical examination with abnormal findings (principal); I10 Essential (primary) hypertension; E78.5 Hyperlipidemia, unspecified; R73.01 Impaired fasting glucose; C15.9 Malignant neoplasm of esophagus, unspecified; D64.9 Anemia, unspecified; M79.2 Neuralgia and neuritis, unspecified; E55.9 Vitamin D deficiency, unspecified
CPT/HCPCS: 99499

== ENCOUNTER 2024-03-04 09:43 | Outpatient (REF) | payer OTHER, SELFPAY ==
[2024-03-04 13:09] LABS: MANUAL DIFF FLAG NO
[2024-03-04 13:17] LABS: Basophils Absolute Auto 0.1 X10*3/uL (0.0-0.2); Basophils Percent Auto 0.6 % (0-2); Eosinophils Absolute Auto 0.1 X10*3/uL (0.0-0.4); Eosinophils Percent Auto 1.3 % (0-4); Hematocrit 41.1 % (42.0-52.0); Hemoglobin 14.3 g/dl (14.0-18.0); Imm Gran Abs Auto 0.07 X10*3/uL (0.00-0.03); Imm Gran Pct Auto 0.9 % (0.0-0.4); Lymphocytes Absolute Auto 1.3 X10*3/uL (1.2-4.9); Lymphocytes Percent Auto 17.3 % (20-40); Mean Corpuscular HGB Conc 34.8 g/dl (31.0-36.0); Mean Corpuscular Hemoglobin 30.8 pg (27.0-33.0); Mean Corpuscular Volume 88.6 fL (80.0-98.0); Mean Platelet Volume 10.3 fL (9.4-12.4); Monocytes Absolute Auto 1.1 X10*3/uL (0.1-1.2); Monocytes Percent Auto 13.7 % (2-11); Neutrophils Absolute Auto 5.1 x10*3/uL (2.0-8.3); Neutrophils Percent Auto 66.2 % (45-73); Platelet Count 311 X10*3/uL (160-400); Red Blood Count 4.64 X10*6/uL (4.60-5.80); Red Cell Distribution Width 13.2 % (11.0-16.0); White Blood Count 7.8 X10*3/uL (4.8-10.8)
[2024-03-04 13:30] LABS: Estimated Average Glucose 105 mg/dL; Hemoglobin A1c % 5.3 % (<6.0)
[2024-03-04 14:06] LABS: Alanine Aminotransferase 20 U/L (0-40); Albumin Level 4.2 g/dL (3.5-5.0); Alkaline Phosphatase 94 U/L (39-117); Anion Gap 13 (12-20); Aspartate Amino Transferase 25 U/L (5-37); Bilirubin Total 0.6 mg/dL (0.0-1.0); Blood Urea Nitrogen 6 mg/dL (9-16); Calcium 9.4 mg/dL (8.4-10.2); Carbon Dioxide 25 mmol/L (22-29); Chloride 98 mmol/L (96-108); Cholesterol 240 mg/dL (<200); Estimated Glomerular Filt Rate > 60; Glucose Fasting 84 mg/dL (60-99); HDL Cholesterol 56 mg/dL (>40); Iron 101 mcg/dL (45-160); LDL Cholesterol Calculated 160 mg/dL (<100); Percent Iron Saturation 40 % (15-50); Sodium 131 mmol/L (135-145); Total Iron Binding Capacity 251 mcg/dL (228-428); Total Protein 7.3 g/dL (6.5-8.0); Triglycerides 120 mg/dL (<150); Unsaturated Iron Binding 150 ug/dL
[2024-03-04 14:08] LABS: Vitamin D 25-OH Total 70.7 ng/mL (>30)
== END 2024-03-04 09:44 | disposition home or self-care (01) ==
LOC: HO.HMGCLDS 09:43
PROVIDERS: PCP Internal Medicine; Visit Provider Internal Medicine
DX: Z00.01 Encounter for general adult medical examination with abnormal findings (principal); E87.1 Hypo-osmolality and hyponatremia; E55.9 Vitamin D deficiency, unspecified; M79.2 Neuralgia and neuritis, unspecified; D64.9 Anemia, unspecified; C15.9 Malignant neoplasm of esophagus, unspecified; R73.01 Impaired fasting glucose; E78.5 Hyperlipidemia, unspecified; I10 Essential (primary) hypertension
CPT/HCPCS: 36415; 80053; 80061; 82306; 83036; 83540; 85025

== ENCOUNTER 2024-06-18 12:41 | Outpatient (AMB) | payer OTHER, SELFPAY ==
[2024-06-18 12:47] VITALS: BP 138/80; PULSE 82; O2SAT 98; BMI 23.9
--- NOTE | 2024-06-18 12:47 | MHC.OFFWIV ---
Intake Vital Signs 06/18/24 12:47 06/18/24 13:36 06/18/24 13:36 06/18/24 13:36 Height 5 ft 8 in Weight 157 lb BMI 23.9 BP 138/80 90/60 150/90 H 140/88 H Blood Pressure Location Rt brachial Lt brachial Lt brachial Lt brachial Position Sitting Sitting Sitting Pulse 82 Pulse Source Pulse Oximeter Pulse Oximetry (%) 98 Oxygen Delivery Method Room Air Intake Visit Reasons: PE cut on finger rt hand Intake Note: Patient here for cut on finger on right hand Patient Tobacco Use Status: Former Tobacco user Allergies No Known Allergies [No Known Allergies*] Allergy (Verified 06/18/24 12:48) Do you need a note to return to daycare/school/sports/work: No HPI HPI Comments History of Present Illness Details Patient is a 63-year-old male complaining a cut on his right ring finger. He states he was planing down a door with a metal instrument and he accidentally caught his finger on it. This happened just prior to his arrival. He states his last tetanus was fairly recently, within the last few years. Patient denies being on a blood thinner. [facility] Medical History Lesion of throat Hyponatremia Vitamin D deficiency Mild intermittent asthma Neuropathic pain Anemia History of chemotherapy Adenocarcinoma of esophagus Finger laceration Arthritis GERD (gastroesophageal reflux disease) Impaired fasting glucose COPD (chronic obstructive pulmonary disease) Dyslipidemia Essential hypertension Tubular adenoma of colon IBS (irritable bowel syndrome) Heartburn symptom Surgical History History of esophagectomy Hx of repair of rotator cuff Hx of colonoscopy Family History Mother Colon cancer Social History Housing: House Patient Tobacco Use Status: Former Tobacco user Years Smoked: 30 yrs e-Cigarette/Vaping Use: Never Used Second Hand Smoke Exposure: No service: No Current occupational status: employed Current occupational exposures/hazards: No Cognitive needs: No Hearing needs: No Vision needs: Yes Review of Systems Const All systems reviewed & are unremarkable except as noted in HPI and below Physical Exam Vital Signs: Last Vital Signs Pulse 82 06/18/24 12:47 BP 140/88 H 06/18/24 13:36 Pulse Ox 98 06/18/24 12:47 Oxygen Delivery Method Room Air 06/18/24 12:47 BMI result Body Mass Index 23.9 Const General: cooperative, healthy appearing, comfortable, no acute distress and well developed Orientation/consciousness: patient oriented x3 Limitations: no limitations HEENT Head: Yes normal to inspection Neck Neck: Yes normal visual inspection and Yes supple Skin Other: Right hand 4th digit has 1cm x1cm skin flap on the pad of the finger, the flap itself is dusky blue. Bleeding is controlled Neuro General: patient oriented x3 Office Procedures Laceration Repair Procedure Location: right hand 4th digit Text: After discussion of risk and benefits, written informed consent was obtained. The area was cleaned, prepped, and draped using sterile technique. The wound was debrided of any foreign material or devitalized tissue. Wound edges were approximated and closed using 5 steri strips. Standard wound dressing was applied. Wound care instructions were given. The patient tolerated the procedure well. The patient was instructed to return for increased redness or red streaking, pain, swelling, pus, fevers, chills, or any other signs or symptoms of infection or worsening. DAC Assessment & Plan Assessment & Plan (1) Cut of finger: Code(s): S61.219A - Laceration without foreign body of unspecified finger without damage to nail, initial encounter Plan: Last tetanus was 03/20/2018, as this was done with a tool that has not been cleaned recently and could have some soil or dirt on it, we gave him an updated Tdap. (2) Vasovagal reaction: Code(s): R55 - Syncope and collapse Plan: While completing the Steri-Strips repair, patient got diaphoretic, little dizzy and looked very pale. He was given an alcohol swab to smell as it appeared he was having a vasovagal reaction. We checked his blood pressure, it was 80/40 so we laid him down raised his legs and immediately the patient started to feel better, his blood pressure went up to 150s systolic, we let him lay there for a little while and eventually got him to his feet. We did call an ambulance when it initially happened, the patient declined transport as he was feeling better. He states he felt much better and his blood pressure remained in the 130s to 140 systolic. I escorted him to his 's car as his is driving him home. In the midst of all this happening, patient inadvertently did not get the Tdap vaccination so we will call him and have him come in tomorrow for an MA visit. Plan see above Orders: Orders TDaP Immunization Today S61.219A - Laceration without foreign body of unspecified finger without damage to nail, initial encounter Medications: New Boostrix Tdap (diphth,pertus(acell),tetanus) 0.5 mL IM ONCE 0.5 mL 0RF dirty wound NS S61.219A - Laceration without foreign body of unspecified finger without damage to nail, initial encounter Coding Level of Care Code Est Pt Level 4 (82318) Diagnoses Cut of finger S61.219A Vasovagal reaction R55
[2024-06-18 13:36] VITALS: BP 140/88; BP 150/90; BP 90/60
== END 2024-06-18 13:49 | disposition home or self-care (01) ==
PROVIDERS: PCP Internal Medicine; Visit Provider Physician Assistant
DX: S61.219A Laceration without foreign body of unspecified finger without damage to nail, initial encounter (principal); R55 Syncope and collapse; Z23 Encounter for immunization

== ENCOUNTER → 2024-06-18 12:41 | Outpatient (BNVA) | payer OTHER, SELFPAY | PROVIDERS: PCP Internal Medicine | DX: Z23 Encounter for immunization (principal); R55 Syncope and collapse; S61.214A Laceration without foreign body of right ring finger without damage to nail, initial encounter; X58.XXXA Exposure to other specified factors, initial encounter; Y93.89 Activity, other specified; Y92.9 Unspecified place or not applicable; Y99.9 Unspecified external cause status | CPT/HCPCS: 90471; 90715; 99212 ==

== ENCOUNTER 2024-08-23 07:23 | Outpatient (REF) | payer OTHER, SELFPAY ==
[2024-08-23 10:17] LABS: MANUAL DIFF FLAG NO
[2024-08-23 10:34] LABS: Basophils Absolute Auto 0.1 X10*3/uL (0.0-0.2); Basophils Percent Auto 0.7 % (0-2); Eosinophils Absolute Auto 0.1 X10*3/uL (0.0-0.4); Eosinophils Percent Auto 1.3 % (0-4); Hematocrit 42.9 % (42.0-52.0); Hemoglobin 14.6 g/dl (14.0-18.0); Imm Gran Abs Auto 0.07 X10*3/uL (0.00-0.03); Imm Gran Pct Auto 0.8 % (0.0-0.4); Lymphocytes Absolute Auto 1.1 X10*3/uL (1.2-4.9); Lymphocytes Percent Auto 13.6 % (20-40); Mean Corpuscular Hemoglobin 30.2 pg (27.0-33.0); Mean Corpuscular Volume 88.6 fL (80.0-98.0); Mean Platelet Volume 10.4 fL (9.4-12.4); Monocytes Percent Auto 11.4 % (2-11); Neutrophils Percent Auto 72.2 % (45-73); Platelet Count 314 X10*3/uL (160-400); Red Blood Count 4.84 X10*6/uL (4.60-5.80); Red Cell Distribution Width 12.9 % (11.0-16.0); White Blood Count 8.4 X10*3/uL (4.8-10.8)
[2024-08-23 11:09] LABS: PSA,Total (Free>4and<10) 0.98 ng/mL (0.00-4.00)
[2024-08-23 11:23] LABS: Anion Gap 10 (12-20)
[2024-08-23 11:27] LABS: Alanine Aminotransferase 25 U/L (0-40); Aspartate Amino Transferase 26 U/L (5-37); Blood Urea Nitrogen 6 mg/dL (9-16); Calcium 9.5 mg/dL (8.4-10.2); Carbon Dioxide 27 mmol/L (22-29); Chloride 100 mmol/L (96-108); Cholesterol 234 mg/dL (<200); Estimated Glomerular Filt Rate > 60; Glucose Fasting 94 mg/dL (60-99); HDL Cholesterol 53 mg/dL (>40); LDL Cholesterol Calculated 151 mg/dL (<100); Potassium 4.5 mmol/L (3.3-5.1); Sodium 132 mmol/L (135-145); Triglycerides 152 mg/dL (<150)
--- OUTSIDE RECORDS SUMMARY | 2024-08-25 12:38 | XMS_ITS | Continuity of Care Document ---
Author Organization [place] - [facility], [facility] Address [address] [place] [address] Care Team Providers Care Health Management Consultant Name Role Phone KAYODE ROBIN Primary Care Provider Assessment Encounter Date Assessment Date Assessment LastModified by Organization Details LastModified Time 06/02/2024 06/02/2024 No evidence of disease on examination today. Fiberoptic examination of nasopharynx, hypopharynx and larynx was stable. Cancer surveillance in 6 months was recommended. 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 He understands to follow-up sooner with any significant changes [email or web address] Not available 06/02/2024 09:35:17 Plan of Treatment Reminders Order Date Submit Date Provider Last Modified By Organization Details Last Modified Time Details Appointments Establish ed 15 2024 02:15P M LUIS A SU MD Not available Not available Not available Lab None recorded. Referral None recorded. Procedures None recorded. Surgeries None recorded. Imaging None recorded. Medication Orders None recorded. Patient TargetsNo targets recorded. Patient InstructionsNo instructions recorded. Reason for Referral None Reported. Results Created Date Observation Date Name Description Value Unit Range Abnormal Flag Note LastModifiedBy Organization Detail LastModifiedTime 05/05/2009/22/2023 imagi ng/di agnos tic resul t No observ ation record ed. [email or web address] Not Available 23:44:36 05/05/20 24 09/30/2023 imagi ng/di agnos tic resul t No observ ation record ed. [email or web address] Not Available 23:44:47 05/05/20 24 12/05/2022 imagi ng/di agnos tic resul t No observ ation record ed. [email or web address] Not Available 23:44:49 05/05/20 24 12/26/2022 imagi ng/di agnos tic resul t No observ ation record ed. [email or web address] Not Available 23:45:30 05/05/20 24 12/26/2022 imagi ng/di agnos tic resul t No observ ation record ed. [email or web address] Not Available 23:45:33 05/05/20 24 02/06/2023 imagi ng/di agnos tic resul t No observ ation record ed. [email or web address] Not Available 23:45:58 05/05/20 24 07/24/2023 imagi ng/di agnos tic resul t No observ ation record ed. [email or web address] Not Available 23:46:10 05/05/20 24 07/24/2023 imagi ng/di agnos tic resul t No observ ation record ed. [email or web address] Not Available 23:46:12 05/05/2008/22/2023 imagi ng/di agnos tic resul t No observ ation record ed. [email or web address] Not Available 23:46:22 Result Notes None recorded. Problems Name Problem SNOMED Code Status Onset Date Resolution Date Notes Provider Name and Address Organization Details Recorded Time History of malignant neoplasm of digestive organ 71708104210 221130 Active 2022 Personal history of malignant neoplasm of other digestive organs; Note: Date Diagnosed : 12/11/2022 5:30 PM (Z85.09) Not Available [facility] 4 02:31:04 Dysphagia 12255838 Active 2022 Dysphagia , pharyngoe sophageal phase; Note: Date Diagnosed : 3 11:26 AM (R13.14) Not Available [facility] 4 02:31:17 Follow-up visit Active 2022 Encounter for follow-up examinati on after completed treatment for malignant neoplasm; Note: Date Diagnosed : 03/06/2023 2:16 PM (Z08) Not Available [facility] 4 02:31:20 History of malignant neoplasm of pharynx 98325710382 107 Active 2022 Personal history of malignant neoplasm: Other and unspecifi ed oral cavity and pharynx; Note: Date Diagnosed : 01/15/2023 12:30 PM (V10.02) Not Available [facility] 4 02:31:09 History of malignant neoplasm of esophagus 059542241 Active 2022 Personal history of malignant neoplasm: Esophagus ; Note: Date Diagnosed : 12/11/2022 5:29 PM (V10.03) Not Available [facility] 4 02:31:13 Malignant tumor of oral cavity 574162763 Active 2022 Malignant neoplasm of mouth, unspecifi ed; Note: Date Diagnosed : 01/15/2023 12:30 PM (C06.9) Not Available [facility] 4 02:31:09 History of malignant neoplasm of oral cavity 554227001 Active 2023 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 Stage CIS Treatment resection of right soft palate 02/14/[address] Andrzej SU MD [address] [place] [address], [phone] , [facility] - [facility] 17:16:41 Problem Notes None recorded. Procedures Surgical History Date Name Laterality Status Provider Name and Address Organization Details Recorded Time 06/02/2024 FOL_DP completed LUIS A SU MD [address] [place] [address], [phone], [facility] - [facility] 05/31/2024 17:11:40 Imaging Results None recorded. Procedure Notes None recorded. Medical Equipment None Reported. Allergies No known drug allergies Medications Name Sig Start Date Stop Date Status Note LastModified by Organization Details LastModified Time amoxicill in 500 mg capsule TAKE 1 CAPSULE BY MOUTH THREE TIMES A DAY 06/02 completed Not Available Not Available Not Available sucralfat e 100 mg/mL oral suspensio n TAKE 10 ML BY MOUTH 3 TIMES A DAY BEFORE MEALS active Not Available Not Available No t Available oxycodone 5 mg/5 mL oral solution Take 5 ml every six hours as needed for pain 06/02 completed Medicati on ID: [id number] D uration Value: 7 Brand Name: oxycodon e Send Method: E-Prescr ibed Sub s Allowed: subs OK Medic ationGen ericName : oxycodon e Not Available Not Available Not Available acetamino phen 500 mg tablet 02/14 completed Medicati on ID: [id number] B rand Name: acetamin ophen Se nd Method: E-Prescr ibed Sub s Allowed: subs OK Medic ationGen ericName : acetamin ophen Not Available Not Available Not Available ferrous sulfate 325 mg (65 mg iron) tablet active Medicati on ID: [id number] B rand Name: ferrous sulfate Send Method: E-Prescr ibed Sub s Allowed: subs OK Speci al Instruct ion: TAKE 1 TABLET BY MOUTH EVERY DAY Medi [facility] nericNam e: ferrous sulfate Not Available Not Available Not Available gabapenti n 300 mg capsule TAKE 1 CAPSULE BY MOUTH TWICE A DAY active Not Available Not Available No t Available furosemid e 20 mg tablet active Medicati on ID: [id number] B rand Name: furosemi de Send Method: E-Prescr ibed Sub s Allowed: subs OK Medic ationGen ericName : furosemi de Not Available Not Available Not Available Children' s Tylenol 160 mg/5 mL oral suspensio n Take 20 ml by mouth every six hours as needed for pain 06/02 completed Medicati on ID: [id number] B rand Name: Children 's Tylenol Send Method: E-Prescr ibed Sub s Allowed: subs OK Speci al Instruct ion: Alternat e with motrin M yamil Pabol Name: Children 's Tylenol Not Available Not Available Not Available Children' s Motrin 100 mg/5 mL oral suspensio n Take 20 ml by mouth every six hours as needed for pain 06/02 completed Medicati on ID: [id number] B rand Name: Children 's Motrin S end Method: E-Prescr ibed Sub s Allowed: subs OK Speci al Instruct ion: Alternat e with tylenol Medicati onGeneri cName: Children 's Motrin Not Available Not Available Not Available acetamino phen active Not Available Not Available Not Available Readi-Cat 2 2 % (w/v) oral suspensio n PLEASE SEE ATTACHED FOR DETAILED DIRECTIO NS 06/02 completed Not Available Not Available Not Available Vitals Date Recorded Body height Body mass index (BMI) Body weight Provider Name and Address Organization Details Last Updated DateTime 06/02/2024 172.72 cm 23.6 kg/m2 87086.82 g Emmy Montelongo [place] - [facility] 06/02/2024 09:21:56 Social History None recorded. Functional Status None recorded. Mental Status None recorded. Family History Nothing Reported. Medical History No medical history recorded. Past Encounters Encounter ID Performer Location Encounter Start Date Encounter Closed Date Diagnosis/Indication Diagnosis SNOMED-CT Code Diagnosis ICD10 Code [id number] LUIS A SU MD [facility] [address] [address] 06/02/2024 09:09:36 06/02/2024 09:37:35 History of malignant neoplasm of oral cavity 742306584 Z85.819 Health Concerns Section Related Observation LastModified by Organization Detai ls LastModified Time None Recorded Concern Status LastModified by Organization Details LastModified Time None Recorded Payers Encounter Date Sequence Insurance Name Policy Number Policy Alonzo Covered Member ID Alonzo Member ID Guarantor Name 06/02/2024 1 [facility] PUBLIC PLANS [facility] - DIRECT [facility] TYPE I ([id number]) [id number] Santi William [id number] 01 Santi William Notes Date Note Type Note Provider Name and Address Organization Details Recorded Time 06/02/2024 text/html Tumor right soft palate intraepithelial carcinoma, high-grade dysplasia CIS.Stage CISTreatment resection of right soft palate 02/14/23Oncology team Dr. Donnelly Hx of esophageal ca s/p resection. 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
--- OUTSIDE RECORDS SUMMARY | 2024-08-25 12:38 | XMS_ITS | Data Portability ---
Author Organization [place] - [facility], [facility] Address [address] [address] Care Team Providers Care Internet Marketing Specialist Name Role Phone KAYODE ROBIN Primary Care [...] ation record ed. [email or web address] Not Available 23:46:12 05/05/20 24 08/22/2023 imagi ng/di agnos tic resul t No observ ation record ed. [email or web address] Not Available 23:46:22 Result Notes None recorded. Problems Name Problem SNOMED Code Status Onset Date Resolution Date Notes Provider Name and Address Organization Details Recorded Time History of malignant neoplasm of digestive organ 46122102414 180563 Active 2022 Personal history of malignant neoplasm of other digestive organs; Note: Date Diagnosed : 12/11/2022 5:30 PM (Z85.09) Not Available [facility] 4 02:31:04 Dysphagia 65416493 Active 2022 Dysphagia , pharyngoe sophageal phase; Note: Date Diagnosed : 3 11:26 AM (R13.14) Not Available [facility] 4 02:31:17 Follow-up visit Active 2022 Encounter for follow-up examinati on after completed treatment for malignant neoplasm; Note: Date Diagnosed : 03/06/2023 2:16 PM (Z08) Not Available [facility] 4 02:31:20 History of malignant neoplasm of pharynx 27668782904 107 Active 2022 Personal history of malignant neoplasm: Other and unspecifi ed oral cavity and pharynx; Note: Date Diagnosed : 01/15/2023 12:30 PM (V10.02) Not Available [facility] 4 02:31:09 History of malignant neoplasm of esophagus 828208157 Active 2022 Personal history of malignant neoplasm: Esophagus ; Note: Date Diagnosed : 12/11/2022 5:29 PM (V10.03) Not Available [facility] 4 02:31:13 Malignant tumor of oral cavity 028743362 Active 2022 Malignant neoplasm of mouth, unspecifi ed; Note: Date Diagnosed : 01/15/2023 12:30 PM (C06.9) Not Available [facility] 4 02:31:09 History of malignant neoplasm of oral cavity 659230138 Active 2023 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 Stage CIS Treatment resection of right soft palate 02/14/[address] Andrzej SU MD [address] [place] [address], [phone] , [place] - [facility] 17:16:41 Problem Notes None recorded. Procedures Surgical History Date Name Laterality Status Provider Name and Address Organization Details Recorded Time 06/02/2024 FOL_DP completed LUIS A SU MD [address] [place] [address], [phone], [place] - [facility] 05/31/2024 17:11:40 Imaging Results Imaging Date Name Status LastModified by Organiz ation Details LastModified Time 09/22/2023 imaging/diag nostic result completed Information not available 05/05/2024 23:44:36 09/30/2023 imaging/diag nostic result completed Information not available 05/05/2024 23:44:47 12/05/2022 imaging/diag nostic result completed Information not available 05/05/2024 23:44:49 12/26/2022 imaging/diag nostic result completed Information not available 05/05/2024 23:45:30 12/26/2022 imaging/diag nostic result completed Information not available 05/05/2024 23:45:33 02/06/2023 imaging/diag nostic result completed Information not available 05/05/2024 23:45:58 07/24/2023 imaging/diag nostic result completed Information not available 05/05/2024 23:46:10 07/24/2023 imaging/diag nostic result completed Information not available 05/05/2024 23:46:12 08/22/2023 imaging/diag nostic result completed Information not available 05/05/2024 23:46:22 Procedure Notes None recorded. Medical Equipment None [...] for pain 06/02 completed Medicati on ID: [id number] D uration Value: 7 Brand Name: oxycodon e Send Method: E-Prescr ibed Sub s Allowed: subs OK Medic ationGen ericName : oxycodon e Not Available Not Available Not Available acetamino phen 500 mg tablet 02/14 completed Medicati on ID: [id number] B rand Name: acetamin ophen Se nd Method: E-Prescr ibed Sub s Allowed: subs OK Medic ationGen ericName : acetamin ophen Not Available Not Available Not Available ferrous sulfate 325 mg (65 mg iron) tablet active Medicati on ID: [id number] B rand Name: ferrous sulfate Send Method: E-Prescr ibed Sub s Allowed: subs OK Speci al Instruct ion: TAKE 1 TABLET BY MOUTH EVERY DAY Medi cationGe nericNam e: ferrous sulfate Not Available Not Available Not Available gabapenti n 300 mg capsule TAKE 1 CAPSULE BY MOUTH TWICE A DAY active Not Available Not Available No t Available furosemid e 20 mg tablet active Medicati on ID: [id number] B rand Name: furosemi de Send Method: E-Prescr ibed Sub s Allowed: subs OK Medic ationGen ericName : furosemi de Not Available Not Available Not Available Children' s Tylenol 160 mg/5 mL oral suspensio n Take 20 ml by mouth every six hours as needed for pain 06/02 completed Medicati on ID: [id number] B rand Name: Children 's Tylenol Send Method: E-Prescr ibed Sub s Allowed: subs OK Speci al Instruct ion: Alternat e with motrin M adaicatio nGeneric Name: Children 's Tylenol Not Available Not Available Not Available Children' s Motrin 100 mg/5 mL oral suspensio n Take 20 ml by mouth every six hours as needed for pain 06/02 completed Medicati on ID: [id number] B rand Name: Children 's Motrin S [...] Updated DateTime 06/02/2024 172.72 cm 23.6 kg/m2 73042.82 g Emmy Montelongo [place] [facility] 06/02/2024 09:21:56 Social History None recorded. Functional Status None recorded. Mental Status None recorded. Family History Nothing Reported. Medical History No medical history recorded. Past Encounters Encounter ID Performer Location Encounter Start Date Encounter Closed Date Diagnosis/Indication Diagnosis SNOMED-CT Code Diagnosis ICD10 Code [id number] LUIS A SU MD [facility] [address] [place] [address] 06/02/2024 09:09:36 06/02/2024 09:37:35 History of malignant neoplasm of oral cavity 800175482 Z85.819 Health Concerns Section Related Observation LastModified by Organization Detai ls LastModified Time None Recorded Concern Status LastModified by Organization Details LastModified Time None Recorded Advance Directives Directive None Recorded Payers Encounter Date Sequence Insurance Name Policy Number Policy Alonzo Covered Member ID Alonzo Member ID Guarantor Name 06/02/2024 1 [facility] [employer] PLANS [facility] TYPE [facility] (O[facility] [id number] Santi William [id number] Santi William Notes Date Note Type Note Provider Name and Address Organization Details Recorded Time 06/02/2024 text/html Tumor right soft palate intraepithelial carcinoma, high-grade dysplasia CIS.Stage CISTreatment resection of right soft palate 02/14/23Oncology team Dr. Donnelly Hx of esophageal ca s/p resection. 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 - [facility] 06/02/2024 09:35:49
--- OUTSIDE RECORDS SUMMARY | 2024-08-25 12:38 | XMS_ITS | Patient Health Record ---
Author Organization [facility] Address [address] [place] [address] Care Team Providers Care Industrial Cafeteria Manager Name Role Phone Brenna BURNS, Erin Primary Care Provider Frandy Millan Unavailable [phone] REASON FOR REFERRAL No Information MEDICATIONS Medication SIG (Take, Route, Frequency, Duration) Notes Start Date End Date Status Bystolic 10 MG 1 tablet Orally Once a day Not-Taking Omeprazole 20 MG 1 capsule 30 minutes before morning meal Orally Once a day for 30 day(s) Active amLODIPine Besylate 10 MG Oral for 90 Active Albuterol Sulfate HFA 108 (90 Base) MCG/ACT Inhalation for 17 A ctive IMMUNIZATIONS Vaccine Route Administration Date Status Comme nts Influenza Unknown 06/15/2021 Administered SOCIAL HISTORY Sex Assigned At : Social History Observation Description Sex Assigned At Unknown PROBLEMS Problem Type ICD Code Onset Dates Problem Status W/U Status Risk SNOMED Code Notes Problem Encounter for screening for malignant neoplasm of colon (Z12.11) Active confirmed 567240044 Problem Abdominal pain, epigastric (R10.13) Active confirmed 78893448 Problem Preprocedural examination (Z01.818) Active confirmed 831036528 Problem Family history of colon cancer (Z80.0) Active confirmed 095680786 Problem Hx of adenomatous colonic polyps (Z86.010) Active confirmed 904889102 Problem Diverticulosis of colon (K57.30) Active confirmed Diverticulosi s of colon (980826125) Problem 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 771350889 PLAN OF TREATMENT Pending Test Test Name Order Date BUN 11/01/2021 CREATININE 11/01/2021 LIVER PROFILE 11/01/2021 CEA 11/01/2021 CBC w DIFF 11/01/2021 CT ABD & PELVIS WITH CONTRAST 11/01/2021 CT CHEST WITH CONTRAST 11/01/2021 US ABD 09/05/2021 Future Test Test Name Order Date COLONOSCOPY 11/10/2014 COLONOSCOPY 07/10/2017 UPPER GI ENDOSCOPY 09/05/2021 COLONOSCOPY 09/05/2021 Insurance Providers Payer Name Payer Address Payer Phone Subscriber Number Group Number Insured Name Patient Relationship to Insured Coverage Start Date Coverage End Date [facility] [address] [place] [phone] [id number] DWAYNE MARTINEZ Self - patient is the insured MEDICAL (GENERAL) HISTORY Medical History History ICD Code Screening Colonoscopy 9-26-0 8--2 tubular adenomas removed; colonoscopy 02/2015-small tubular adenoma removed---another polyp was felt to be visualized between 30 and 50 cm but could not be found again---also had diverticulosis and minimal internal hemorrhoids; he had a followup colonoscopy in September of 2017 with removal of a single tubular adenoma COPD HTN Denies [place],DM,CVA,renal disease 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
== END 2024-08-23 07:24 | disposition home or self-care (01) ==
LOC: HO.HMGCLDS 07:23
PROVIDERS: PCP Internal Medicine; Visit Provider Internal Medicine
DX: J44.9 Chronic obstructive pulmonary disease, unspecified (principal); E78.5 Hyperlipidemia, unspecified; Z23 Encounter for immunization; I10 Essential (primary) hypertension; E55.9 Vitamin D deficiency, unspecified; E87.1 Hypo-osmolality and hyponatremia; M79.2 Neuralgia and neuritis, unspecified; R73.01 Impaired fasting glucose; Z85.01 Personal history of malignant neoplasm of esophagus; Z86.2 Personal history of diseases of the blood and blood-forming organs and certain disorders involving the immune mechanism
CPT/HCPCS: 36415; 80048; 80061; 82306; 84153; 84450; 84460; 85025; 90471; 90656; 96127; 99212

== ENCOUNTER 2024-08-23 07:38 | Outpatient (AMB) | payer OTHER, SELFPAY ==
--- NOTE | 2024-08-23 07:57 | A.OFFPC_ITS ---
Vital Signs 08/23/24 07:58 Height 5 ft 8 in Weight 160 lb BMI 24.3 BP 146/78 H Blood Pressure Location Rt brachial Position Sitting Pulse 80 Pulse Source Pulse Oximeter Pulse Oximetry (%) 97 Oxygen Delivery Method Room Air Intake Visit Reasons: 6M F/U Intake Note: - The patient is a 63-year-old male with history of esophageal cancer,presenting for management of hypertension, and COPD symptoms. - Diagnosed with hypertension, currently not on antihypertensive medication as BP was lower when he was getting chemotherapy, but now is noted to be trending up.. 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 - Reports ongoing difficulty swallowing; esophageal size previously reduced to 8 mm, causing significant dietary challenges. - COPD symptoms worse in winter; no current inhaler use due to previous insurance issues. Up-to-date with his screening colonoscopy done 10/29/2021 with removal of hyperplastic polyps in colon - Hypercholesterolemia noted in February, with discussion to monitor levels. - Reports muscle cramps in the left upper leg, improving with mobility. - Completes regular occupational tasks but experiences muscle cramping on exertion. Allergies No Known Allergies [No Known Allergies*] Allergy (Verified 08/23/24 08:43) Medication List - Last Reconciled 08/23/24 by Erin Ceja MD acetaminophen (Tylenol Extra Strength) 1,000 mg PO Q6H PRN cholecalciferol (vitamin D3) 50 mcg PO DAILY famotidine 20 mg PO BID ferrous sulfate 325 mg PO DAILY gabapentin 300 mg PO BID Tobacco use date assessed: 08/23/24 Dental Screening Dental Screen Date: 08/23/24 Did you have a dental visit in the last 12 months?: Yes Did you have a dental problem in the last 6 months where you did not have access to dental care?: Yes Was dental information given to patient?: Patient has dentist HPI HPI Comments History of Present Illness Details - The patient is a 63-year-old male with history of esophageal cancer,presenting for management of hypertension, and COPD symptoms. - Diagnosed with hypertension, currently not on antihypertensive medication as BP was lower when he was getting chemotherapy, but now is noted to be trending up.. 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 - Reports ongoing difficulty swallowing; esophageal size previously reduced to 8 mm, causing significant dietary challenges. - COPD symptoms worse in winter; no curr ent inhaler use due to previous insurance issues. Up-to-date with his screening colonoscopy done 10/29/2021 with removal of hyperplastic polyps in colon - Hypercholesterolemia noted in February, discussion to monitor levels. - Reports muscle cramps in the left uppe r leg, improving with mobility. 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 Experiences intermittent episodes of muscle cramping in left thigh, which resolves with walking [facility] Medical History (Updated 08/24/24 @ 01:33 by Erin Ceja MD) History of esophageal cancer Hyponatremia Vitamin D deficiency Mild intermittent asthma Neuropathic pain Anemia History of chemotherapy Finger laceration Arthritis GERD (gastroesophageal reflux disease) Impaired fasting glucose COPD (chronic obstructive pulmonary disease) Dyslipidemia Essential hypertension Tubular adenoma of colon IBS (irritable bowel syndrome) Heartburn symptom Surgical History History of esophagectomy Hx of repair of rotator cuff Hx of colonoscopy Family History Mother Colon cancer Social History Housing: House Patient Tobacco Use Status: Former Tobacco user Years Smoked: 30 yrs e-Cigarette/Vaping Use: Never Used Second Hand Smoke Exposure: No service: No Current occupational status: employed Current occupational exposures/hazards: No Cognitive needs: No Hearing needs: No Vision needs: Yes Questionnaire PHQ-9 Over the last 2 weeks, how often have you been bothered by any of the following problems? 1. Little interest or pleasure in doing things: not at all 2. Feeling down, depressed, or hopeless: not at all 3. Trouble falling or staying asleep, or sleeping too much: not at all 4. Feeling tired or having little energy: not at all 5. Poor appetite or overeating: not at all 6. Feeling bad about yourself - or that you are a failure or have let yourself or your family down: not at all 7. Trouble concentrating on things, such as reading the newspaper or watching television: not at all 8. Moving or speaking so slowly that other people could have noticed. Or the opposite - being so fidgety or restless that you have been moving around a lot more than usual: not at all 9. Thoughts that you would be better off or of hurting yourself in some way: not at all Total score: 0 Depression Screening Interpretation: Negative Depression Screening Done: Yes 54156 - PHQ-9 Billing: Yes Source: Developed by Drs. Frandy Noriega, Vania Flynn, George Sumemrs and colleagues, with an educational faizan from [employer]. Thrive Questionnaire Date Thrive assessed: 03/04/24 I am a: Patient What is your living situation today?: I have a steady place to live Within the past 12 months, did the food you bought not last and you didn't have the money to get more?: Never true Within the past 12 months, did you worry whether your food would run out before you got money to buy more?: Never true Do you have trouble paying for medicines?: No Do you have trouble getting transportation to medical appointments?: No Do you have trouble paying your heating and electricity bill?: No Do you have trouble taking care of your child, family member or friend?: No Do you have trouble with day-to-day activities such as bathing, preparing meals, shopping, managing finances, etc.?: No Are you currently unemployed and looking for a job?: No Are you interested in more education?: No Please select the resources that you would like help with: None Currently or been in a relationship where the following occur: No concerns reported THRIVE Score: 0 AUDIT C Alcohol Use Questionnaire (AUDIT-C) 1. How often do you have a drink containing alcohol?: Never 2. How many drinks containing alcohol do you have on a typical day when you are drinking?: 1 or 2 3. How often do you have six or more drinks on one occasion?: Never Total Score: 0 SOREN-7 AMB Questionnaire SOREN-7 Date SOREN - 7 assessed: 08/23/24 Feeling nervous, anxious, or on edge: 0 = Not at all Not being able to stop or control worryin = Not at all Worrying too much about different things: 0 = Not at all Trouble relaxin = Not at all Being so restless that it is hard to sit still: 0 = Not at all Becoming easily annoyed or irritable: 0 = Not at all Feeling afraid as if something awful might happen: 0 = Not at all Total SOREN-7 score (0-4 normal; 5-9 mild; 10-14 moderate; 15-21 severe): 0 Source: Developed by Drs. Frandy Noriega, aVnia Flynn, George Summers and colleagues, with an educational faizan from [employer]. SOREN-7 Assessment Billing SOREN-7 Assessment Tool: SOREN-7 Assessment 30756 Review of Systems Const Denies chills, Denies fever(s), Denies headache(s), Denies malaise and Denies weakness Eyes Denies change in vision ENT Denies dysphagia, Denies dizziness, Denies dry mouth, Denies headache(s), Denies nasal congestion, Denies nasal discharge and Denies sore throat Card Denies irregular heart rhythm, Denies leg edema and Denies dyspnea Resp Denies chest congestion, Denies cough and Denies dyspnea GI Denies melena, Denies bloating, Denies hematochezia, Denies change in bowel habits, Denies dysphagia and Denies dyspepsia Reports no additional complaints Musc Denies joint swelling, Denies muscle weakness and Denies stiffness Skin/Breast Denies lesions and Denies rash Neuro Denies confusion, Denies dizziness, Denies headache(s), Denies lack of coordination and Denies weakness Psych Reports no additional complaints and Denies confusion Endo Reports no additional complaints Shen/Lymph Reports no additional complaints Aller/Immun Reports no additional complaints Physical exam (Primary Care) Vital Signs: Last Vital Signs Pulse 80 08/23/24 07:58 BP 146/78 H 08/23/24 07:58 Pulse Ox 97 08/23/24 07:58 Oxygen Delivery Method Room Air 08/23/24 07:58 BMI result Body Mass Index 24.3 Tobacco/Smoking Status: Tobacco use Status Tobacco use date assessed 08/23/24 08/23/24 08:05 Patient Tobacco Use Status Former Tobacco user 08/23/24 08:05 e-Cigarette/Vaping Use Never Used 08/23/24 08:05 PHQ-9: PHQ-9 Score PHQ-9: Total score 0 08/23/24 09:03 Depression Screening Interpretation: Negative Thrive Assessment: Date of Thrive Assessment Date Thrive assessed 03/04/24 08/23/24 08:05 Currently or been in a relationship where the following occur: No concerns reported Const General: No confusion Orientation/consciousness: No confusion HENMT Mouth: Normal oral and palatal mucosa present, tongue normal, oropharynx normal and moist mucous membranes Eyes General: appearance normal, both eyes and all related structures Neck Other: Supple with no lymphadenopathy full range of motion Neck: Yes no meningeal signs Resp Auscultation: clear to auscultation bilaterally Cardio Other: S1-S2 present regular rate and rhythm GI Palpation (GI): Soft to palpation, Tenderness to palpation present (GI) (Upper abdomen), no guarding and no masses General: Yes no CVA tenderness Back/Spine/Pelvis Back: no CVA tenderness and No back tenderness Skin General skin exam: no rashes or lesions noted Neuro General: no meningeal signs and No confusion Extrem General: Yes full ROM, Yes no joint enlargement, Yes no clubbing, cyanosis or edema, Yes no calf tenderness and Yes normal gait Psych Appearance: grossly normal and well kempt Mental Status: mental status grossly normal Speech and movement: Normal speech and movement present Affect: normal affect Attitude: cooperative Thought process: Normal thought process present Thought content: Normal thought content present Office Procedures Flu Questionnaire Does the patient have a severe egg allergy?: No Does the patient have severe life threatening allergies?: No Does the patient have a fever or illness today?: No Has the patient ever had Guillain-Tracy Syndrome?: No Has the patient ever had any past reaction to a flu shot?: No Immunizations Fluarix Triv [id number] (PF) 45 mcg (15 mcg x 3)/0.5 mL IM syringe Performing Provider: Erin Ceja MD Performing Location: [facility] Administered by: Eunice Mark CMA on 08/23/24 09:03 Dose Route Admin Location Dispensed Lot Number Expiration Date [facility] Graphite Grinder 0.5 mL IM Left Deltoid 0.5 mL [id number] 03/14/25 [id number] [employer] VIS Given Date VIS Provided VIS Publication Date 08/23/24 Single Vaccine 21 Eligibility Eligibility Date Funding Source Not [facility] Eligible 08/23/24 Private Coding Level of Care Code Est Pt Level 4 (18045) Complex EM visit Add On G2211 Diagnoses COPD (chronic obstructive pulmonary disease) J44.9 Dyslipidemia E78.5 Essential hypertension I10 Vitamin D deficiency E55.9 Hyponatremia E87.1 Additional Codes PHQ-9 - 71853 - PHQ-9 Billing: Yes ([id number]) SOREN-7 Assessment Billing - SOREN-7 Assessment Tool: SOREN-7 Assessment 20108 ([id number]) Assessment & Plan Assessment & Plan (1) COPD (chronic obstructive pulmonary disease): Code(s): J44.9 - Chronic obstructive pulmonary disease, unspecified Category: Medical (2) Dyslipidemia: Code(s): E78.5 - Hyperlipidemia, unspecified Category: Medical (3) Essential hypertension: Code(s): I10 - Essential (primary) hypertension Category: Medical (4) Vitamin D deficiency: Code(s): E55.9 - Vitamin D deficiency, unspecified Category: Medical (5) Hyponatremia: Code(s): E87.1 - Hypo-osmolality and hyponatremia Category: Medical Plan - Hypertension: Initiate lisinopril 5 mg daily, review BP in two weeks. - Esophageal Stricture: Continue follow-ups with Dr. Barron; manage stricture symptoms. - Hypercholesterolemia: Re-evaluate lipid profile; maintain diet and lifestyle adjustments. - COPD: Prescribe albuterol inhaler for use as needed; monitor frequency of symptoms. -Muscle cramps in his upper left leg were noted, and I recommended trying magnesium supplementation first, with potential vascular studies if no improvement is observed. A scheduled blood pressure check with the nurse in two weeks was confirmed, with additional instruction to seek early review if the cramps persist or worsen. -We discussed the appropriateness of vaccinations, outlining timing relative to current health status and upcoming medical reviews. Flu vaccine given today Patient was informed and verbally consented to the use of an ambient scribe for clinic note documentation during this visit. Orders: Orders Vitamin D 25-OH Total 08/23/24 E55.9 - Vitamin D deficiency, unspecified, E78.5 - Hyperlipidemia, unspecified, E87.1 - Hypo-osmolality and hyponatremia, I10 - Essential (primary) hypertension, M79.2 - Neuralgia and neuritis, unspecified, R73.01 - Impaired fasting glucose, Z12.5 - Encounter for screening for malignant neoplasm of prostate, Z13.1 - Encounter for screening for diabetes mellitus, Z85.01 - Personal history of malignant neoplasm of esophagus, Z86.2 - Personal history of diseases of the blood and blood-forming organs and certain disorders involving the immune mechanism Aspartate Amino Transferase 08/23/24 E55.9 - Vitamin D deficiency, unspecified, E78.5 - Hyperlipidemia, unspecified, E87.1 - Hypo-osmolality and hyponatremia, I10 - Essential (primary) hypertension, M79.2 - Neuralgia and neuritis, unspecified, R73.01 - Impaired fasting glucose, Z12.5 - Encounter for screening for malignant neoplasm of prostate, Z13.1 - Encounter for screening for diabetes mellitus, Z85.01 - Personal history of malignant neoplasm of esophagus, Z86.2 - Personal history of diseases of the blood and blood-forming organs and certain disorders involving the immune mechanism Influenza [id number] Immunization 08/23/24 Z23 - Encounter for immunization Lipid Panel 08/23/24 E55.9 - Vitamin D deficiency, unspecified, E78.5 - Hyperlipidemia, unspecified, E87.1 - Hypo-osmolality and hyponatremia, I10 - Essential (primary) hypertension, M79.2 - Neuralgia and neuritis, unspecified, R73.01 - Impaired fasting glucose, Z12.5 - Encounter for screening for malignant neoplasm of prostate, Z13.1 - Encounter for screening for diabetes mellitus, Z85.01 - Personal history of malignant neoplasm of esophagus, Z86.2 - Personal history of diseases of the blood and blood-forming organs and certain disorders involving the immune mechanism Alanine Aminotransferase 08/23/24 E55.9 - Vitamin D deficiency, unspecified, E78.5 - Hyperlipidemia, unspecified, E87.1 - Hypo-osmolality and hyponatremia, I10 - Essential (primary) hypertension, M79.2 - Neuralgia and neuritis, unspecified, R73.01 - Impaired fasting glucose, Z12.5 - Encounter for screening for malignant neoplasm of prostate, Z13.1 - Encounter for screening for diabetes mellitus, Z85.01 - Personal history of malignant neoplasm of esophagus, Z86.2 - Personal history of diseases of the blood and blood-forming organs and certain disorders involving the immune mechanism Complete Blood Count Auto Diff 08/23/24 E55.9 - Vitamin D deficiency, unspecified, E78.5 - Hyperlipidemia, unspecified, E87.1 - Hypo-osmolality and hyponatremia, I10 - Essential (primary) hypertension, M79.2 - Neuralgia and neuritis, unspecified, R73.01 - Impaired fasting glucose, Z12.5 - Encounter for screening for malignant neoplasm of prostate, Z13.1 - Encounter for screening for diabetes mellitus, Z85.01 - Personal history of malignant neoplasm of esophagus, Z86.2 - Personal history of diseases of the blood and blood-forming organs and certain disorders involving the immune mechanism PSA,Total (Free>4and<10) 08/23/24 E55.9 - Vitamin D deficiency, unspecified, E78.5 - Hyperlipidemia, unspecified, E87.1 - Hypo-osmolality and hyponatremia, I10 - Essential (primary) hypertension, M79.2 - Neuralgia and neuritis, unspecified, R73.01 - Impaired fasting glucose, Z12.5 - Encounter for screening for malignant neoplasm of prostate, Z13.1 - Encounter for screening for diabetes mellitus, Z85.01 - Personal history of malignant neoplasm of esophagus, Z86.2 - Personal history of diseases of the blood and blood-forming organs and certain disorders involving the immune mechanism Basic Metabolic Panel Fasting 08/23/24 E55.9 - Vitamin D deficiency, unspecified, E78.5 - Hyperlipidemia, unspecified, E87.1 - Hypo-osmolality and hyponatremia, I10 - Essential (primary) hypertension, M79.2 - Neuralgia and neuritis, unspecified, R73.01 - Impaired fasting glucose, Z12.5 - Encounter for screening for malignant neoplasm of prostate, Z13.1 - Encounter for screening for diabetes mellitus, Z85.01 - Personal history of malignant neoplasm of esophagus, Z86.2 - Personal history of diseases of the blood and blood-forming organs and certain disorders involving the immune mechanism Medications: New lisinopril 5 mg PO DAILY 30 tabs 0RF albuterol sulfate 90 mcg/actuation 2 puffs inhalation Q6H PRN 8.5 grams 1RF shortness of breath or wheezing
[2024-08-23 07:58] VITALS: BP 146/78; PULSE 80; O2SAT 97; BMI 24.3
== END 2024-08-23 09:14 | disposition home or self-care (01) ==
PROVIDERS: PCP Internal Medicine; Visit Provider Internal Medicine
DX: J44.9 Chronic obstructive pulmonary disease, unspecified (principal); E78.5 Hyperlipidemia, unspecified; I10 Essential (primary) hypertension; E55.9 Vitamin D deficiency, unspecified; E87.1 Hypo-osmolality and hyponatremia

== ENCOUNTER → 2024-09-09 07:55 | Outpatient (BNVA) | payer OTHER, SELFPAY | PROVIDERS: PCP Internal Medicine ==

== ENCOUNTER → 2024-09-16 08:04 | Outpatient (BNVA) | payer OTHER, SELFPAY | PROVIDERS: PCP Internal Medicine ==

== ENCOUNTER → 2024-09-30 08:01 | Outpatient (BNVA) | payer OTHER, SELFPAY | PROVIDERS: PCP Internal Medicine ==

== ENCOUNTER → 2024-10-22 11:17 | Outpatient (BNVA) | payer OTHER, SELFPAY | PROVIDERS: PCP Internal Medicine ==

== ENCOUNTER 2024-12-04 11:31 | Outpatient (AMB) | payer OTHER, SELFPAY ==
[2024-12-04 11:34] VITALS: BP 136/68; PULSE 78; RESP 16; TEMP 36.6; O2SAT 98; BMI 26.0
--- NOTE | 2024-12-04 11:34 | AM.OFFWIN_ITS ---
Intake Vital Signs 12/04/24 11:34 Height 5 ft 8 in Weight 171 lb BMI 26.0 BP 136/68 Blood Pressure Location Lt brachial Position Sitting Respiration 16 Pulse 78 Pulse Source Pulse Oximeter Temp 97.9 F Temp Source Oral Pulse Oximetry (%) 98 Oxygen Delivery Method Room Air Intake Visit Reasons: EP headaches, ? BP medication Intake Note: Pt is here today c/o headache and cough Patient Tobacco Use Status: Former Tobacco user Allergies No Known Allergies [No Known Allergies*] Allergy (Verified 12/04/24 11:35) Medication List - Last Reconciled 12/04/24 by Shane Martinez MD acetaminophen (Tylenol Extra Strength) 1,000 mg PO Q6H PRN albuterol sulfate 90 mcg/actuation 2 puffs inhalation Q6H PRN cholecalciferol (vitamin D3) 50 mcg PO DAILY famotidine 20 mg PO BID ferrous sulfate 325 mg PO DAILY gabapentin 300 mg PO BID lisinopril 20 mg (2 x 10 mg) PO DAILY HPI EP headaches, ? BP medication HPI Details Patient complains of an annoying dry cough which he associates with an increase in lisinopril. Otherwise does not feel sick and has no nasal or chest congestion. Also has mild intermittent headaches. These tend to be at posterolateral aspect of his head or posteriorly. He says his systolic blood pressures get up into the 140s and he is wondering if his blood pressures might be causing these headaches. No vision changes, no chest pain or shortness of breath. No new focal weakness or changes in mentation. He does note some neck tension. [facility] Medical History (Updated 12/04/24 @ 11:55 by Shane Martinez MD) History of esophageal cancer Hyponatremia Vitamin D deficiency Mild intermittent asthma Neuropathic pain Anemia History of chemotherapy Finger laceration Arthritis GERD (gastroesophageal reflux disease) Impaired fasting glucose COPD (chronic obstructive pulmonary disease) Dyslipidemia Essential hypertension Tubular adenoma of colon IBS (irritable bowel syndrome) Heartburn symptom Surgical History History of esophagectomy Hx of repair of rotator cuff Hx of colonoscopy Family History Mother Colon cancer Social History Housing: House Patient Tobacco Use Status: Former Tobacco user Years Smoked: 30 yrs e-Cigarette/Vaping Use: Never Used Second Hand Smoke Exposure: No service: No Current occupational status: employed Current occupational exposures/hazards: No Cognitive needs: No Hearing needs: No Vision needs: Yes Review of Systems Const Denies chills, Denies fatigue, Denies fever(s), Reports headache(s) ( mild intermittent headaches, see HPI) and Denies weakness ENT Denies dizziness and Reports headache(s) ( mild intermittent headaches, see HPI) Card Denies dyspnea Resp Denies cough, Denies dyspnea, Denies wheezing and Denies other ( shortness of breath) Musc Details: Mild neck tension Denies numbness and Denies tingling Neuro Denies dizziness, Reports headache(s) ( mild intermittent headaches, see HPI), Denies numbness, Denies tingling, Denies paresthesias and Denies weakness Psych Denies anxiety and Denies depression Endo Denies fatigue Aller/Immun Denies wheezing Physical Exam Vital Signs: Last Vital Signs Temp 97.9 F 12/04/24 11:34 Pulse 78 12/04/24 11:34 Resp 16 12/04/24 11:34 BP 136/68 12/04/24 11:34 Pulse Ox 98 12/04/24 11:34 Oxygen Delivery Method Room Air 12/04/24 11:34 BMI result Body Mass Index 26.0 Const General: no acute distress and well developed Nutritional Appearance: well nourished Orientation/consciousness: patient oriented x3 HEENT Head: Yes normocephalic and Yes atraumatic Eyes General: appearance normal, both eyes and all related structures Pupils: Equal, round and reactive pupils present EOM: EOMs intact bilaterally Resp Effort & Inspection: normal respiratory effort Auscultation: clear to auscultation bilaterally Cardio Rate: regular rate Rhythm: regular rhythm Heart sounds: S1 normal heart sound present, S2 normal heart sound present, no gallops, no murmurs and no rubs Neuro General: patient oriented x3 and gait normal Cranial nerves: Yes Equal, round and reactive pupils present Psych Affect: normal affect Assessment & Plan Assessment & Plan (1) Cough: Code(s): R05.9 - Cough, unspecified Plan: patient has dry cough/ tickle since change in lisinopril will have him switch to losartan and he can follow-up with his PCP. He says he has an upcoming appointment. Monitor blood pressures at home (2) Headache: Code(s): R51.9 - Headache, unspecified Plan: mild intermittent headaches and patient has some neck and shoulder tension and discomfort. No other symptoms from his headaches. We discussed that given his only mild elevations in blood pressure that I do not think that his blood pressure is causing his headaches. Appears to be tension style headache can use a little Tylenol relieve tension in neck and shoulders and I demonstrated exercises hydrate well and get plenty of rest Medications: New losartan 50 mg PO DAILY 90 days 90 tabs 2RF Discontinued lisinopril Discontinued Reason: Doctor's Order 20 mg (2 x 10 mg) PO DAILY 90 tabs 2RF Coding Level of Care Code Est Pt Level 3 (39055) Diagnoses Cough R05.9 Headache R51.9
== END 2024-12-04 12:19 | disposition home or self-care (01) ==
PROVIDERS: PCP Internal Medicine; Visit Provider Family Medicine
DX: R05.9 Cough, unspecified (principal); R51.9 Headache, unspecified

== ENCOUNTER → 2024-12-04 11:31 | Outpatient (BNVA) | payer OTHER, SELFPAY | PROVIDERS: PCP Internal Medicine | DX: R05.9 Cough, unspecified (principal); R51.9 Headache, unspecified | CPT/HCPCS: 99212 ==

== ENCOUNTER 2024-12-10 11:09 | Outpatient (AMB) | payer OTHER, SELFPAY ==
--- NOTE | 2024-12-10 11:07 | A.OFFPC_ITS ---
Vital Signs 12/10/24 11:14 BP 158/78 H Pulse 84 Pulse Source Pulse Oximeter Intake Visit Reasons: pelon fitzgerald/al banks Allergies No Known Allergies [No Known Allergies*] Allergy (Verified 12/10/24 11:23) Medication List - Last Reconciled 12/10/24 by Erin Ceja MD acetaminophen (Tylenol Extra Strength) 1,000 mg PO Q6H PRN albuterol sulfate 90 mcg/actuation 2 puffs inhalation Q6H PRN cholecalciferol (vitamin D3) 50 mcg PO DAILY famotidine 20 mg PO BID ferrous sulfate 325 mg PO DAILY gabapentin 300 mg PO BID losartan 50 mg PO DAILY 90 days magnesium 200 mg PO DAILY Tobacco use date assessed: 12/10/24 Dental Screening Dental Screen Date: 12/10/24 Did you have a dental visit in the last 12 months?: Yes Did you have a dental problem in the last 6 months where you did not have access to dental care?: No Was dental information given to patient?: Patient has dentist HPI pelon fitzgerald/al banks HPI Details 64 year-old male with past medical histo ry of stage II adenocarcinoma of esophagus s/p radiation and chemotherapy, completed in February 2022, underwent esophagectomy 04/08/2022, has COPD, hypertension, arthritis, anemia, mild intermittent asthma, and history of tubular adenoma removed on last colonoscopy, here today for follow-up to check his blood pressure. Last seen at the walk-in clinic complaining of a persistent dry cough. He was switch from lisinopril to losartan 50 mg daily to see if this will help relieve the coughing and control his blood pressure. Patient states blood pressure still elevated at home, has been checking it with his own monitor. Denies any accompanying headache no shortness a breath, no lightheadedness or palpitations reported. He also has been having intermittent episodes of heartburn usually at night. Takes famotidine 20 mg 1 tablet twice a day. Recently seen by his ENT specialist last September 2024 and had a fiber optic laryngoscopy done which no evidence of disease recurrence, no other abnormality seen. [facility], [facility] Medical History (Updated 12/11/24 @ 00:37 by Erin Ceja MD) Degenerative disc disease, cervical History of esophageal cancer Hyponatremia Vitamin D deficiency Mild intermittent asthma Neuropathic pain Anemia History of chemotherapy Finger laceration Arthritis GERD (gastroesophageal reflux disease) Impaired fasting glucose COPD (chronic obstructive pulmonary disease) Dyslipidemia Essential hypertension Tubular adenoma of colon IBS (irritable bowel syndrome) Heartburn symptom Surgical History History of esophagectomy Hx of repair of rotator cuff Hx of colonoscopy Family History Mother Colon cancer Social History Housing: House Patient Tobacco Use Status: Former Tobacco user Years Smoked: 30 yrs e-Cigarette/Vaping Use: Never Used Second Hand Smoke Exposure: No service: No Current occupational status: employed Current occupational exposures/hazards: No Cognitive needs: No Hearing needs: No Vision needs: Yes Questionnaire PHQ-9 Over the last 2 weeks, how often have you been bothered by any of the following problems? 1. Little interest or pleasure in doing things: not at all 2. Feeling down, depressed, or hopeless: not at all 3. Trouble falling or staying asleep, or sleeping too much: not at all 4. Feeling tired or having little energy: not at all 5. Poor appetite or overeating: not at all 6. Feeling bad about yourself - or that you are a failure or have let yourself or your family down: not at all 7. Trouble concentrating on things, such as reading the newspaper or watching television: not at all 8. Moving or speaking so slowly that other people could have noticed. Or the opposite - being so fidgety or restless that you have been moving around a lot more than usual: not at all 9. Thoughts that you would be better off or of hurting yourself in some way: not at all Total score: 0 Depression Screening Interpretation: Negative Depression Screening Done: Yes 30035 - PHQ-9 Billing: Yes Source: Developed by Drs. Frandy Noriega, Vania Flynn, George Summers and colleagues, with an educational faizan from [employer]. Thrive Questionnaire Date Thrive assessed: 12/10/24 I am a: Patient What is your living situation today?: I have a steady place to live Within the past 12 months, did the food you bought not last and you didn't have the money to get more?: Never true Within the past 12 months, did you worry whether your food would run out before you got money to buy more?: Never true Do you have trouble paying for medicines?: No Do you have trouble getting transportation to medical appointments?: No Do you have trouble paying your heating and electricity bill?: No Do you have trouble taking care of your child, family member or friend?: No Do you have trouble with day-to-day activities such as bathing, preparing meals, shopping, managing finances, etc.?: No Are you currently unemployed and looking for a job?: No Are you interested in more education?: No Please select the resources that you would like help with: None Currently or been in a relationship where the following occur: No concerns reported THRIVE Score: 0 AUDIT C Alcohol Use Questionnaire (AUDIT-C) 2. How many drinks containing alcohol do you have on a typical day when you are drinking?: 1 or 2 3. How often do you have six or more drinks on one occasion?: Never Total Score: 0 SOREN-7 AMB Questionnaire SOREN-7 Date SOREN - 7 assessed: 12/10/24 Feeling nervous, anxious, or on edge: 0 = Not at all Not being able to stop or control worryin = Not at all Worrying too much about different things: 0 = Not at all Trouble relaxin = Not at all Being so restless that it is hard to sit still: 0 = Not at all Becoming easily annoyed or irritable: 0 = Not at all Feeling afraid as if something awful might happen: 0 = Not at all Total SOREN-7 score (0-4 normal; 5-9 mild; 10-14 moderate; 15-21 severe): 0 Source: Developed by Drs. Frandy Noriega, Vania Flynn, George schmidt nd colleagues, with an educational faizan from [employer]. SOREN-7 Assessment Billing SOREN-7 Assessment Tool: SOREN-7 Assessment 22533 Review of Systems Const Denies chills, Denies fatigue, Denies fever(s) and Denies weakness Eyes Denies change in vision ENT Reports no additional complaints Card Denies chest pain, Denies syncope, Denies rapid heart rate and Denies palpitations Resp Reports as per HPI and Denies wheezing Musc Details: Denies numbness and Denies tingling Neuro Denies syncope, Denies numbness, Denies tingling, Denies paresthesias and Denies weakness Psych Denies anxiety and Denies depression Endo Denies fatigue and Denies palpitations Aller/Immun Denies wheezing Physical exam (Primary Care) Vital Signs: Last Vital Signs Pulse 84 12/10/24 11:14 BP 158/78 H 12/10/24 11:14 Tobacco/Smoking Status: Tobacco use Status Tobacco use date assessed 12/10/24 12/10/24 11:08 Patient Tobacco Use Status Former Tobacco user 12/10/24 11:08 e-Cigarette/Vaping Use Never Used 12/10/24 11:08 PHQ-9: PHQ-9 Score PHQ-9: Total score 0 12/10/24 11:43 Depression Screening Interpretation: Negative Thrive Assessment: Date of Thrive Assessment Date Thrive assessed 12/10/24 12/10/24 11:09 Currently or been in a relationship where the following occur: No concerns reported Telehealth Telehealth Telehealth Platform: [employer] Location of provider rendering services: practice address Location of patient: address on file Patient Identification confirmed using: Name, : Yes Telehealth method: video Patient verbally consented to treatment: Yes Patient verbally consented to billing insurance company: Yes Patient informed of any privacy concerns related to visit: Yes Minutes spent on Phone/Video with Pt.: 15 Coding Level of Care Code Est Pt Level 4 (05853) Complex EM visit Add On G2211 Diagnoses Essential hypertension I10 Subacute cough R05.2 Cough type: subacute Additional Codes PHQ-9 - 27894 - PHQ-9 Billing: Yes ([id number]) SOREN-7 Assessment Billing - SOREN-7 Assessment Tool: SOREN-7 Assessment 13665 ([id number]) Assessment & Plan Assessment & Plan (1) Essential hypertension: Code(s): I10 - Essential (primary) hypertension Category: Medical Plan: Blood pressure not at goal of less than 130/90 and below. Increase losartan dose of 100 mg 1 tablet daily in a.m., continue monitor blood pressure at home continue with a low-salt diet. Follow-up in January 2025 to check blood pressure, and do fasting basic metabolic panel prior to appointment (2) Cough: Code(s): R05.9 - Cough, unspecified Category: Medical Qualifiers: Cough type: subacute Qualified Code(s): R05.2 - Subacute cough Plan: Likely could be GERD versus postnasal drainage. Advised to start taking famotidine 40 mg at night either before supper or 2 hours after supper time, raise the head of the bed up by at least 2-3 pillows when sleeping. Orders: Orders Magnesium 01/13/25 E78.5 - Hyperlipidemia, unspecified, E87.1 - Hypo-osmolality and hyponatremia, I10 - Essential (primary) hypertension, M50.30 - Other cervical disc degeneration, unspecified cervical region, R05.9 - Cough, unspecified, R51.9 - Headache, unspecified, R73.01 - Impaired fasting glucose Lipid Panel 01/13/25 E78.5 - Hyperlipidemia, unspecified, E87.1 - Hypo- osmolality and hyponatremia, I10 - Essential (primary) hypertension, M50.30 - Other cervical disc degeneration, unspecified cervical region, R05.9 - Cough, unspecified, R51.9 - Headache, unspecified, R73.01 - Impaired fasting glucose Basic Metabolic Panel Fasting 01/13/25 E78.5 - Hyperlipidemia, unspecified, E87.1 - Hypo-osmolality and hyponatremia, I10 - Essential (primary) hypertension, M50.30 - Other cervical disc degeneration, unspecified cervical region, R05.9 - Cough, unspecified, R51.9 - Headache, unspecified, R73.01 - Impaired fasting glucose Aspartate Amino Transferase 01/13/25 E78.5 - Hyperlipidemia, unspecified, E87.1 - Hypo-osmolality and hyponatremia, I10 - Essential (primary) hypertension, M50.30 - Other cervical disc degeneration, unspecified cervical region, R05.9 - Cough, unspecified, R51.9 - Headache, unspecified, R73.01 - Impaired fasting glucose
[2024-12-10 11:14] VITALS: BP 158/78; PULSE 84
== END 2024-12-10 12:03 | disposition home or self-care (01) ==
LOC: HO.HMCC 11:09
PROVIDERS: PCP Internal Medicine; Visit Provider Internal Medicine
DX: I10 Essential (primary) hypertension (principal); R05.2 Subacute cough

== ENCOUNTER → 2024-12-10 11:09 | Outpatient (BNVA) | payer OTHER, SELFPAY | PROVIDERS: PCP Internal Medicine; Visit Provider Internal Medicine | DX: R05.2 Subacute cough (principal); J44.9 Chronic obstructive pulmonary disease, unspecified; I10 Essential (primary) hypertension; M19.90 Unspecified osteoarthritis, unspecified site; J45.909 Unspecified asthma, uncomplicated; E78.5 Hyperlipidemia, unspecified; E87.1 Hypo-osmolality and hyponatremia; M50.30 Other cervical disc degeneration, unspecified cervical region; R05.9 Cough, unspecified; R51.9 Headache, unspecified; R73.01 Impaired fasting glucose; Z90.49 Acquired absence of other specified parts of digestive tract; Z85.01 Personal history of malignant neoplasm of esophagus | CPT/HCPCS: 96127; 99212 ==

== ENCOUNTER 2025-01-14 06:33 | Outpatient (REF) | payer OTHER, SELFPAY ==
[2025-01-14 10:06] LABS: MANUAL DIFF FLAG NO
[2025-01-14 10:12] LABS: Basophils Absolute Auto 0.1 X10*3/uL (0.0-0.2); Basophils Percent Auto 0.6 % (0-2); Eosinophils Absolute Auto 0.3 X10*3/uL (0.0-0.4); Eosinophils Percent Auto 3.4 % (0-4); Hematocrit 41.5 % (42.0-52.0); Hemoglobin 14.5 g/dl (14.0-18.0); Imm Gran Abs Auto 0.07 X10*3/uL (0.00-0.03); Imm Gran Pct Auto 0.8 % (0.0-0.4); Lymphocytes Absolute Auto 1.4 X10*3/uL (1.2-4.9); Lymphocytes Percent Auto 15.9 % (20-40); Mean Corpuscular HGB Conc 34.9 g/dl (31.0-36.0); Mean Corpuscular Volume 85.7 fL (80.0-98.0); Monocytes Absolute Auto 1.3 X10*3/uL (0.1-1.2); Monocytes Percent Auto 14.9 % (2-11); Neutrophils Absolute Auto 5.5 x10*3/uL (2.0-8.3); Neutrophils Percent Auto 64.4 % (45-73); Platelet Count 333 X10*3/uL (160-400); Red Blood Count 4.84 X10*6/uL (4.60-5.80); Red Cell Distribution Width 13.2 % (11.0-16.0); White Blood Count 8.5 X10*3/uL (4.8-10.8)
[2025-01-14 10:33] LABS: Alanine Aminotransferase 47 U/L (0-40); Anion Gap 14 (12-20); Aspartate Amino Transferase 35 U/L (5-37); Blood Urea Nitrogen 11 mg/dL (9-16); Calcium 9.4 mg/dL (8.4-10.2); Carbon Dioxide 24 mmol/L (22-29); Chloride 96 mmol/L (96-108); Cholesterol 210 mg/dL (<200); Estimated Glomerular Filt Rate > 60; Glucose Fasting 91 mg/dL (60-99); HDL Cholesterol 58 mg/dL (>40); LDL Cholesterol Calculated 127 mg/dL (<100); Magnesium 2.3 mg/dL (1.6-2.6); Sodium 129 mmol/L (135-145); Triglycerides 129 mg/dL (<150)
[2025-01-14 10:54] LABS: Vitamin D 25-OH Total 118.3 ng/mL (>30)
== END 2025-01-14 06:34 | disposition home or self-care (01) ==
LOC: HO.HMGCLDS 06:33
PROVIDERS: PCP Internal Medicine; Visit Provider Internal Medicine
DX: R51.9 Headache, unspecified (principal); M50.30 Other cervical disc degeneration, unspecified cervical region; R05.9 Cough, unspecified; E78.5 Hyperlipidemia, unspecified; I10 Essential (primary) hypertension; R73.01 Impaired fasting glucose; E87.1 Hypo-osmolality and hyponatremia
CPT/HCPCS: 36415; 80048; 80061; 82306; 83735; 84450; 84460; 85025

== ENCOUNTER 2025-01-17 10:20 | Outpatient (AMB) | payer OTHER, SELFPAY ==
[2025-01-17 10:49] VITALS: BP 138/76; PULSE 81; RESP 16; TEMP 36.6; O2SAT 99; BMI 25.7
--- NOTE | 2025-01-17 10:49 | MHC.PC.OV ---
Vital Signs 01/17/25 10:49 Height 5 ft 8 in Weight 169 lb BMI 25.7 BP 138/76 Blood Pressure Location Lt brachial Position Sitting Respiration 16 Pulse 81 Pulse Source Pulse Oximeter Temp 97.9 F Temp Source Oral Pulse Oximetry (%) 99 Oxygen Delivery Method Room Air Intake Visit Reasons: HTN follow up Intake Note: Pt is here today for his f/u HTN Allergies No Known Allergies [No Known Allergies*] Allergy (Verified 12/10/24 11:23) Tobacco use date assessed: 01/17/25 Dental Screening Dental Screen Date: 01/17/25 Did you have a dental visit in the last 12 months?: Yes Did you have a dental problem in the last 6 months where you did not have access to dental care?: No Was dental information given to patient?: Patient has dentist HPI HTN follow up HPI Details 64 year-old male with past medical history of stage II adenocarcinoma of esophagus s/p radiation and chemotherapy, completed in February 2022, underwent esophagectomy 04/08/2022, here today for follow-up on his hypertension. He is currently taking losartan 100 mg once a day, with blood pressure control now improved as compared to last check. Patient denies any headache, no shortness of breath, no dizziness, no chest pain or palpitations. PFSH Medical History Degenerative disc disease, cervical History of esophageal cancer Hyponatremia Vitamin D deficiency Mild intermittent asthma Neuropathic pain Anemia History of chemotherapy Finger laceration Arthritis GERD (gastroesophageal reflux disease) Impaired fasting glucose COPD (chronic obstructive pulmonary disease) Dyslipidemia Essential hypertension Tubular adenoma of colon IBS (irritable bowel syndrome) Heartburn symptom Surgical History History of esophagectomy Hx of repair of rotator cuff Hx of colonoscopy Family History Mother Colon cancer Social History Housing: House Patient Tobacco Use Status: Former Tobacco user Years Smoked: 30 yrs e-Cigarette/Vaping Use: Never Used Second Hand Smoke Exposure: No service: No Current occupational status: employed Current occupational exposures/hazards: No Cognitive needs: No Hearing needs: No Vision needs: Yes Questionnaire PHQ-9 Over the last 2 weeks, how often have you been bothered by any of the following problems? 1. Little interest or pleasure in doing things: not at all 2. Feeling down, depressed, or hopeless: not at all 3. Trouble falling or staying asleep, or sleeping too much: not at all 4. Feeling tired or having little energy: not at all 5. Poor appetite or overeating: not at all 6. Feeling bad about yourself - or that you are a failure or have let yourself or your family down: not at all 7. Trouble concentrating on things, such as reading the newspaper or watching television: not at all 8. Moving or speaking so slowly that other people could have noticed. Or the opposite - being so fidgety or restless that you have been moving around a lot more than usual: not at all 9. Thoughts that you would be better off or of hurting yourself in some way: not at all Total score: 0 Depression Screening Interpretation: Negative Depression Screening Done: Yes 69873 - PHQ-9 Billing: Yes Source: Developed by Drs. Frandy Noriega, Vania Flynn, George Summers and colleagues, with an educational faizan from [employer]. Thrive Questionnaire Date Thrive assessed: 12/10/24 I am a: Patient What is your living situation today?: I have a steady place to live Within the past 12 months, did the food you bought not last and you didn't have the money to get more?: Never true Within the past 12 months, did you worry whether your food would run out before you got money to buy more?: Never true Do you have trouble paying for medicines?: No Do you have trouble getting transportation to medical appointments?: No Do you have trouble paying your heating and electricity bill?: No Do you have trouble taking care of your child, family member or friend?: No Do you have trouble with day-to-day activities such as bathing, preparing meals, shopping, managing finances, etc.?: No Are you currently unemployed and looking for a job?: No Are you interested in more education?: No Please select the resources that you would like help with: None Currently or been in a relationship where the following occur: No concerns reported THRIVE Score: 0 AUDIT C Alcohol Use Questionnaire (AUDIT-C) 1. How often do you have a drink containing alcohol?: Never Total Score: 0 SOREN-7 AMB Questionnaire SOREN-7 Date SOREN - 7 assessed: 12/10/24 Feeling nervous, anxious, or on edge: 0 = Not at all Not being able to stop or control worryin = Not at all Worrying too much about different things: 0 = Not at all Trouble relaxin = Not at all Being so restless that it is hard to sit still: 0 = Not at all Becoming easily annoyed or irritable: 0 = Not at all Feeling afraid as if something awful might happen: 0 = Not at all Total SOREN-7 score (0-4 normal; 5-9 mild; 10-14 moderate; 15-21 severe): 0 Source: Developed by Drs. Frandy Noriega, Vania Flynn, George Summers and colleagues, with an educational faizan from [employer]. SOREN-7 Assessment Billing SOREN-7 Assessment Tool: SOREN-7 Assessment 69826 Review of Systems Const Denies chills, Denies fatigue, Denies fever(s) and Denies weakness Eyes Denies change in vision ENT Reports no additional complaints Card Denies chest pain, Denies syncope, Denies rapid heart rate and Denies palpitations Resp Reports as per HPI and Denies wheezing GI Reports no additional complaints Reports no additional complaints Musc Details: Denies numbness and Denies tingling Neuro Denies syncope, Denies numbness, Denies tingling, Denies paresthesias and Denies weakness Psych Denies anxiety and Denies depression Endo Denies fatigue and Denies palpitations Aller/Immun Denies wheezing Physical exam (Primary Care) Vital Signs: Last Vital Signs Temp 97.9 F 01/17/25 10:49 Pulse 81 01/17/25 10:49 Resp 16 01/17/25 10:49 BP 138/76 01/17/25 10:49 Pulse Ox 99 01/17/25 10:49 Oxygen Delivery Method Room Air 01/17/25 10:49 BMI result Body Mass Index 25.7 Tobacco/Smoking Status: Tobacco use Status Tobacco use date assessed 01/17/25 01/17/25 10:56 Patient Tobacco Use Status Former Tobacco user 01/17/25 10:56 e-Cigarette/Vaping Use Never Used 01/17/25 10:56 PHQ-9: PHQ-9 Score PHQ-9: Total score 0 01/17/25 11:21 Depression Screening Interpretation: Negative Thrive Assessment: Date of Thrive Assessment Date Thrive assessed 12/10/24 01/17/25 10:56 Currently or been in a relationship where the following occur: No concerns reported HENMT Mouth: Normal oral and palatal mucosa present, tongue normal, oropharynx normal and moist mucous membranes Eyes General: appearance normal, both eyes and all related structures Neck Other: Supple with no lymphadenopathy full range of motion Neck: Yes no meningeal signs Resp Auscultation: clear to auscultation bilaterally Cardio Other: S1-S2 present regular rate and rhythm GI Palpation (GI): Soft to palpation, Tenderness to palpation present (GI) (Upper abdomen), no guarding and no masses General: Yes no CVA tenderness Back/Spine/Pelvis Back: no CVA tenderness and No back tenderness Skin General skin exam: no rashes or lesions noted Neuro General: no meningeal signs Extrem General: Yes full ROM, Yes no joint enlargement, Yes no clubbing, cyanosis or edema, Yes no calf tenderness and Yes normal gait Psych Appearance: grossly normal and well kempt Mental Status: mental status grossly normal Speech and movement: Normal speech and movement present Affect: normal affect Attitude: cooperative Thought process: Normal thought process present Results Reviewed Results Reviewed: Name: Santi William Age/Sex: 64/M : 1960 Unit#: [id number] Attend Dr: Erin Ceja MD Re01/14/25 Status: DEP [facility] Disch: SPEC : [id number] OLIVA: 01/14/25 STATUS: COMP REQ : [id number] RECD: 01/14/[address]: Erin Ceja MD COMP: 01/14/25 ENTERED: 01/14/[address]: ORDERED: CBC Auto Diff Test Result Flag Reference WBC 8.5 4.8-10.8 X10*3/uL RBC 4.84 4.60-5.80 X10*6/uL HGB 14.5 14.0-18.0 g/dl HCT 41.5 L 42.0-52.0 % MCV 85.7 80.0-98.0 fL MCH 30.0 27.0-33.0 pg MCHC 34.9 31.0-36.0 g/dl RDW 13.2 11.0-16.0 % PLT 333 160-400 X10*3/uL MPV 10.0 9.4-12.4 fL Neut Pct Auto 64.4 45-73 % ImGran Pct Auto 0.8 H 0.0-0.4 % Lymp Pct Auto 15.9 L 20-40 % Dubois Pct Auto 14.9 H 2-11 % Eos Pct Auto 3.4 0-4 % Baso Pct Auto 0.6 0-2 % NRBC Pct Auto 0.0 0.0-0.2 /100WBC ANC Neut Abs # 5.5 2.0-8.3 x10*3/uL ImGran Abs Auto 0.07 H 0.00-0.03 X10*3/uL Lymph Abs Auto 1.4 1.2-4.9 X10*3/uL Dubois Abs Auto 1.3 H 0.1-1.2 X10*3/uL Eos Abs Auto 0.3 0.0-0.4 X10*3/uL Baso Abs Auto 0.1 0.0-0.2 X10*3/uL NRBC Abs Auto 0.000 0.0-0.012 X10*3/uL Name: Santi William Age/Sex: 64/M : 1960 Unit#: [id number] Attend Dr: Erin Ceja MD Re01/14/25 Status: DEP [facility] Disch: SPEC : [id number] OLIVA: 01/14/25 STATUS: COMP REQ : [id number] RECD: 01/14/[address]: Erin Ceja MD COMP: 01/14/25 ENTERED: 01/14/[address]: ORDERED: Met Prof Fast, MG, AST, ALT, Lipid Panel, Vitamin D 25-OH Test Result Flag Reference Sodium 129 L 135-145 mmol/L Potassium 5.0 3.3-5.1 mmol/L CL 96 96-108 mmol/L CO2 24 22-29 mmol/L Gap 14 12-20 BUN 11 9-16 mg/dL Creat 0.93 0.5-1.4 mg/dL eGFR > 60 Chronic Kidney Disease: Estimated GFR < 60 mL/min/1.73m2 Severe Kidney Disease: Estimated GFR < 15 mL/min/1.73m2 FBS 91 60-99 mg/dL CA 9.4 8.4-10.2 mg/dL Magnesium 2.3 1.6-2.6 mg/dL AST (GOT) 35 5-37 U/L ALT (GPT) 47 H 0-40 U/L Triglyceride 129 <150 mg/dL Desirable Triglyceride: less than 150 mg/dL Borderline High Triglyceride 150-199 mg/dL High Triglyceride: 200-499 mg/dL Very High Triglyceride: greater than or equal to 5OO mg/dL Cholesterol 210 H <200 mg/dL Desirable Cholesterol: less than 200 mg/dL Borderline High Cholesterol: 200-239 mg/dL High Cholesterol: greater than 239 mg/dL LDL Calculated 127 H <100 mg/dL Desirable LDL: less than 100 mg/dL Near Optimal/Above Optimal LDL: 110-129 mg/dL Borderline High LDL: 130-159 mg/dL High LDL: 160-189 mg/dL Very High LDL: greater than or equal to 190 mg/dL HDL 58 >40 mg/dL Desirable HDL: greater than 40 mg/dL Note: This HDL assay may give artificially low results in patients with liver disease. Vitamin D 25-OH 118.3 >30 ng/mL Health Based Reference Values* < 20 ng/mL Deficient 20-30 ng/mL Insufficient > 30 ng/mL Sufficient Coding Level of Care Code Est Pt Level 4 (18907) Diagnoses Essential hypertension I10 Additional Codes PHQ-9 - 95681 - PHQ-9 Billing: Yes ([id number]) SOREN-7 Assessment Billing - SOREN-7 Assessment Tool: SOREN-7 Assessment 22649 ([id number]) Assessment & Plan Assessment & Plan (1) Essential hypertension: Code(s): I10 - Essential (primary) hypertension Category: Medical Plan: Blood pressure at goal of less than 130/80. Continue with losartan 100 mg taken once a day Reinforced importance of following a low sodium diet, getting regular exercise, and lowering stress levels. Orders: Orders Alanine Aminotransferase 04/09/25 E78.5 - Hyperlipidemia, unspecified, E87.1 - Hypo-osmolality and hyponatremia, I10 - Essential (primary) hypertension, R73.01 - Impaired fasting glucose, R74.8 - Abnormal levels of other serum enzymes Lipid Panel 04/09/25 E78.5 - Hyperlipidemia, unspecified, E87.1 - Hypo-osmolality and hyponatremia, I10 - Essential (primary) hypertension, R73.01 - Impaired fasting glucose, R74.8 - Abnormal levels of other serum enzymes Aspartate Amino Transferase 04/09/25 E78.5 - Hyperlipidemia, unspecified, E87.1 - Hypo-osmolality and hyponatremia, I10 - Essential (primary) hypertension, R73.01 - Impaired fasting glucose, R74.8 - Abnormal levels of other serum enzymes Basic Metabolic Panel Fasting 04/09/25 E78.5 - Hyperlipidemia, unspecified, E87.1 - Hypo-osmolality and hyponatremia, I10 - Essential (primary) hypertension, R73.01 - Impaired fasting glucose, R74.8 - Abnormal levels of other serum enzymes
--- OUTSIDE RECORDS SUMMARY | 2025-01-17 11:42 | XMS_ITS | Clinical Summary ---
Author Organization [facility] Facility Address [address] [address] Care Team Providers Care Charge Aide Name Role Phone Unavailable Primary Care Provider Unavailabl e Medications amLODIPine (NORVASC) 10 MG tablet TAKE 1 TABLET BY MOUTH EVERY DAY 90 tablet 4 05/19/2021 Active Family History Medical History Relation Comments Cancer Mother colon Diabetes Mother Relation Status Comments Father Unknown Mother Unknown Social History Tobacco Use Types Packs/Day Years Used Date Smoking Tobacco: Former Alcohol Use Standard Drinks/Week Comments Yes 0 (1 standard drink = 0.6 oz pure alcohol) Alcoholic Drinks/day: 1-2 drinks per day Sex and Gender Information Value Date Recorded Sex Assigned at Not on file Legal Sex Male 5:07 PM EST Gender Identity Not on file Sexual Orientation Not on file Plan of Treatment Health Maintenance Due Date Last Done Comments Colorectal Cancer Screening: Annual FOBT 2009 Colorectal Cancer Screening: Colonoscopy 2009 Colorectal Cancer Screening: Sigmoidoscopy 2009 Pneumococcal Vaccine: 50+ Ye ars (1 of 1 - PCV) 2010 Influenza Vaccine (Season Ended) 2025 Hepatitis B Vaccine Aged Out No longe r eligible based on patient's age to complete this topic
--- OUTSIDE RECORDS SUMMARY | 2025-01-17 11:42 | XMS_ITS | Data Portability ---
Author Organization [place] - [facility], [facility] Address [address] [address] Care Team Providers Care Placement Specialist Name Role Phone KAYODE ROBIN Primary Care Provider [phone] Assessment Encounter Date Assessment Date Assessment LastModified by Organization Details LastModified Time 06/02/2024 06/02/2024 No evidence of disease on examination today. Fiberoptic examination of nasopharynx, hypopharynx and larynx was stable. Cancer surveillance in 6 months was recommended. 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 He understands to follow-up sooner with any significant changes [email or web address] Not available 06/02/2024 09:35:17 12/01/2024 12/01/2024 No evidence of disease on examination today. Fiberoptic examination of nasopharynx, hypopharynx and larynx was stable. Cancer surveillance in 6 months was recommended. 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 He understands to follow-up sooner with any significant changes [email or web address] Not available 11/30/2024 12:55:50 Plan of Treatment Reminders Order Date Submit Date Provider Last Modified By Organization Details Last Modified Time Details Appointments Establish ed 15 2024 09:00A M LUIS A SU MD Not available Not available Not available Lab None recorded. Referral None recorded. Procedures None recorded. Surgeries None recorded. Imaging None recorded. Medication Orders None recorded. Patient TargetsNo targets recorded. Patient InstructionsNo instructions recorded. Reason for Referral None Reported. Results Created Date Observation Date Name Description Value Unit Range Abnormal Flag Note LastModifiedBy Organization Detail LastModifiedTime 05/05/20 24 09/22/2023 imagi ng/di agnos tic resul t No [...] History of malignant neoplasm of digestive organ 17770881007 608390 Active 2022 Personal history of malignant neoplasm of other digestive organs; Note: Date Diagnosed : 12/11/2022 5:30 PM (Z85.09) Not Available [facility] 4 02:31:04 Dysphagia 95010389 Active 2022 Dysphagia , pharyngoe sophageal phase; Note: Date Diagnosed : 3 11:26 AM (R13.14) Not Available [facility] 4 02:31:17 Follow-up visit Active 2022 Encounter for follow-up examinati on after completed treatment for malignant neoplasm; Note: Date Diagnosed : 03/06/2023 2:16 PM (Z08) Not Available [facility] 4 02:31:20 History of malignant neoplasm of pharynx 86484253803 107 Active 2022 Personal history of malignant neoplasm: Other and unspecifi ed oral cavity and pharynx; Note: Date Diagnosed : 01/15/2023 12:30 PM (V10.02) Not Available [facility] 4 02:31:09 History of malignant neoplasm of esophagus 049765801 Active 2022 Personal history of malignant neoplasm: Esophagus ; Note: Date Diagnosed : 12/11/2022 5:29 PM (V10.03) Not Available [facility] 4 02:31:13 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 Stage CIS Treatment resection of right soft palate 02/14/[address] Andrzej SU MD [address] [place] [address],[place] [address], [place], [phone] , [place] - [facility] 4 17:16:41 Chronic cough 75085972 Active 2024 LUIS A SU MD [address] [place] [address],[place] [address], [place], [phone] , [place] [facility] 5 14:24:35 Problem Notes None recorded. Procedures Surgical History Date Name Laterality Status Provider Name and Address Organization Details Recorded Time 12/01/2024 FOL_DP completed LUIS A SU MD [address] [facility],[address], [address], [place] [facility] 11/30/2024 12:55:44 06/02/2024 FOL_DP completed LUIS A SU MD 100 [facility],[address], [address], [place] [facility] 05/31/2024 17:11:40 Imaging Results Imaging Date Name [...] MOUTH 3 TIMES A DAY BEFORE MEALS 12/01 completed Not Available Not Available Not Available oxycodone 5 mg/5 mL oral solution Take 5 ml every six hours as needed for pain 06/02 completed Medicati on ID: [id number] D uration Value: 7 Brand Name: oxycodon e Send Method: E-Prescr ibed Sub s Allowed: subs OK Medic ationGen ericName : oxycodon e Not Available Not Available Not Available acetamino phen 500 mg tablet 02/14 completed Medicati on ID: [id number] B rand Name: acetamin ophen Se nd Method: E-Prescr ibed Sub s Allowed: subs OK Medic ationGen ericName : acetamin ophen Not Available Not Available Not Available ferrous sulfate 325 mg (65 mg iron) tablet active Medicati on ID: [id number] B rand Name: ferrous sulfate Send Method: E-Prescr ibed Sub s Allowed: subs OK Speci al Instruct ion: TAKE 1 TABLET BY MOUTH EVERY DAY [facility] nericNam e: ferrous sulfate Not Available Not Available Not Available lisinopri l 10 mg tablet TAKE 2 TABLETS BY MOUTH DAILY active Not Available Not Available No t Available gabapenti n 300 mg capsule TAKE 1 CAPSULE ORALLY 2 TIMES A DAY active Not Available Not Available No t Available lisinopri l 5 mg tablet TAKE 1 TABLET BY MOUTH EVERY DAY 12/01 completed Not Available Not Available Not Available furosemid e 20 mg tablet active Medicati on ID: [id number] B rand Name: furosemi de Send Method: E-Prescr ibed Sub s Allowed: subs OK Medic ationGen ericName : furosemi de Not Available Not Available Not Available albuterol sulfate HFA 90 mcg/actua tion aerosol inhaler INHALE 2 PUFFS EVERY 6 HOURS NEEDED FOR SHORTNES S OF BREATH OR WHEEZING active Not Available Not Available No t Available Children' s Tylenol 160 mg/5 mL oral suspensio n Take 20 ml by mouth every six hours as needed for pain 06/02 completed Medicati on ID: [id number] B rand Name: Children 's Tylenol Send Method: E-Prescr ibed Sub s Allowed: subs OK Speci al Instruct ion: Alternat e with motrin M yamil nGeneric Name: Children 's Tylenol Not Available Not Available Not Available Children' s Motrin 100 mg/5 mL oral suspensio n Take 20 ml by mouth every six hours as needed for pain 06/02 completed Medicati on ID: [id number] B rand Name: Children 's Motrin S end Method: E-Prescr ibed Sub s Allowed: subs OK Speci al Instruct ion: Alternat e with tylenol Medicati onGeneri cName: Children 's Motrin Not Available Not Available Not Available acetamino phen active Not Available Not Available Not Available magnesium gluconate active Not Available Not Available No t Available Readi-Cat 2 2 % (w/v) oral suspensio n PLEASE SEE ATTACHED FOR DETAILED DIRECTIO NS 06/02 completed Not Available Not Available Not Available Vitals Date Recorded Body height Body mass index (BMI) Body weight Provider Name and Address Organization Details Last Updated DateTime 12/01/2024 172.72 cm 25.8 kg/m2 51114.7 g ROOSEVELT MIKE [facility] 12/01/2024 14:06:08 Date Recorded Body height Body mass index (BMI) Body weight Provider Name and Address Organization Details Last Updated DateTime 06/02/2024 172.72 cm 23.6 kg/m2 32793.82 g Emmy Montelongo [facility] 06/02/2024 09:21:56 Social History None recorded. Functional Status None recorded. Mental Status None recorded. Family History Nothing Reported. Medical History No medical history recorded. Past Encounters Encounter ID Performer Location Encounter Start Date Encounter Closed Date Diagnosis/Indication Diagnosis SNOMED-CT Code Diagnosis ICD10 Code Diagnosis Note [id number] LUIS A SU MD [facility] [address] [address] 06/02/2024 09:09:36 06/02/2024 09:37:35 History of malignant neoplasm of oral cavity 378043808 Z85.819 [id number] LUIS A SU MD [facility] [address] [address] 12/01/2024 13:45:55 12/01/2024 14:26:50 History of malignant neoplasm of oral cavity 179480064 Z85.819 Chronic cough 09661742 R 05.3 possibilit y of lisinopril associated cough is considered . Patient will discuss with PCP to adjust medication Health Concerns Section Related Observation LastModified by Organization Detai ls LastModified Time None Recorded Concern Status LastModified by Organization Details LastModified Time None Recorded Advance Directives Directive None Recorded Payers Encounter Date Sequence Insurance Name Policy Number Policy Alonzo Covered Member ID Alonzo Member ID Guarantor Name 06/02/2024 1 [facility] DIRECT CONNECTORCARE TYPE I (HMO) [id number] Santi William [id number] Santi William 12/01/2024 1 [facility] - DIRECT CONNECTORCARE TYPE I (HMO) [id number] Santi William [id number] Santi William Notes Date Note Type Note Provider Name and Address Organization Details Recorded Time 06/02/2024 text/html Tumor right soft palate intraepithelial carcinoma, high-grade dysplasia CIS.Stage CISTreatment resection of right soft palate 02/14/23Oncology team Dr. Donnelly Hx of esophageal ca s/p resection. 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 Donnelly recent dry cough, noted he has increased his lisinopril for BP recently Hx of esophageal ca s/p resection. 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
--- OUTSIDE RECORDS SUMMARY | 2025-01-17 11:42 | XMS_ITS | Patient Health Record ---
Author Organization [facility] Address [address] [place] [address] Care Team Providers Care Bereavement Program Coordinator Name Role Phone Brenna BURNS, Erin Primary Care Provider Frandy Millan Unavailable [phone] Reason For Referral No Information Medications Medication SIG (Take, Route, Frequency, Duration) Notes Start Date End Date Status Bystolic 10 MG 1 tablet Orally Once a day Not-Taking Omeprazole 20 MG 1 capsule 30 minutes before morning meal Orally Once a day for 30 day(s) Active amLODIPine Besylate 10 MG Oral for 90 Active Albuterol Sulfate HFA 108 (90 Base) MCG/ACT Inhalation for 17 A ctive Immunizations Vaccine Route Administration Date Status Comme nts Influenza Unknown 06/15/2021 Administered Problems Problem Type SNOMED Code ICD Code Onset Dates Problem Status W/U Status Risk Notes Problem 157457445 Encounter for screening for malignant neoplasm of colon (Z12.11) Active confirmed Problem 69101950 Abdominal pain, epigastric (R10.13) Active confirmed Problem 688385168 Preprocedural examination (Z01.818) Active confirmed Problem 735164065 Family history o f colon cancer (Z80.0) Active confirmed Problem 457348862 Hx of adenomatou s colonic polyps (Z86.010) Active confirmed Problem Diverticulosis o f colon (K57.30) Active confirmed Problem 529517547 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 Plan Of Treatment Pending Test Test Name Order Date BUN [...] Insured Coverage Start Date Coverage End Date [facility] [address] [place] [phone] [id number] DWAYNE MARTINEZ Self - patient is the insured Medical (General) History Medical History History ICD Code Screening Colonoscopy 9-26-0 8--2 tubular adenomas removed; colonoscopy 02/2015-small tubular adenoma removed---another polyp was felt to be visualized between 30 and 50 cm but could not be found again---also had diverticulosis and minimal internal hemorrhoids; he had a followup colonoscopy in September of 2017 with removal of a single tubular adenoma COPD HTN Denies [place],DM,CVA,renal disease 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
== END 2025-01-17 11:49 | disposition home or self-care (01) ==
LOC: HO.HMCC 10:21
PROVIDERS: PCP Internal Medicine; Visit Provider Internal Medicine
DX: I10 Essential (primary) hypertension (principal)

== ENCOUNTER → 2025-01-17 10:20 | Outpatient (BNVA) | payer OTHER, SELFPAY | PROVIDERS: PCP Internal Medicine; Visit Provider Internal Medicine | DX: I10 Essential (primary) hypertension (principal); Z79.899 Other long term (current) drug therapy; Z85.01 Personal history of malignant neoplasm of esophagus; Z92.3 Personal history of irradiation; Z92.21 Personal history of antineoplastic chemotherapy | CPT/HCPCS: 96127; 99212 ==

== ENCOUNTER 2025-04-18 08:21 | Outpatient (AMB) | payer OTHER, SELFPAY ==
--- OUTSIDE RECORDS SUMMARY | 2025-04-18 08:36 | XMS_ITS | Clinical Summary ---
Author Organization [facility] Address [address] [address] Care Team Providers Care Sheet Sorter Name Role Phone Unavailable Primary Care Provider [...] of 1 - PCV) 2010 Influenza Vaccine (#1) 2025 Hepatitis B Vaccine Aged Out No longe r eligible based on patient's age to complete this topic
--- OUTSIDE RECORDS SUMMARY | 2025-04-18 08:36 | XMS_ITS | Patient Health Record ---
Author Organization [facility] Address [address] [place] [address] Care Team Providers Care Sas Clinical Programmer Name Role Phone Brenna BURNS, Erin Primary Care Provider Frandy Millan Unavailable [phone] Reason For Referral No Information Medications Medication [...] Problem Status W/U Status Risk Notes Problem [id number] Encounter for screening for malignant neoplasm of colon (Z12.11) Active confirmed Problem 13813611 Abdominal pain, epigastric (R10.13) Active confirmed Problem 988714157 Preprocedural examination (Z01.818) Active confirmed Problem 060934178 Family history o f colon cancer (Z80.0) Active confirmed Problem 897655535 Hx of adenomatou s colonic polyps (Z86.010) Active confirmed Problem Diverticulosis of colon (522753859) Diverticulosis of colon (K57.30) Active confirmed Problem 406471480 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) Active [...] Insured Coverage Start Date Coverage End Date [facility] [address] [place] [phone] [id number] DWAYNE MARTINEZ Self - patient is the [...] a single tubular adenoma COPD HTN Denies [place],DM,CVA,renal disease 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
--- NOTE | 2025-04-18 08:54 | A.OFFPC_ITS ---
Vital Signs 04/18/25 09:03 Height 5 ft 8 in Weight 167 lb BMI 25.4 BP 132/66 Blood Pressure Location Rt brachial Position Sitting Respiration 16 Pulse 91 Pulse Source Pulse Oximeter Temp 97.1 F Temp Source Oral Pulse Oximetry (%) 98 Oxygen Delivery Method Room Air Intake Visit Reasons: Annual PE Intake Note: Pt is here today for his PE: last colonoscopy 10/29/21 Allergies No Known Allergies (No Known Allergies*) Allergy (Verified 04/18/25 09:04) Medication List - Last Reconciled 04/18/25 by Erin Ceja MD acetaminophen (Tylenol Extra Strength) 1,000 mg PO Q6H PRN albuterol sulfate 90 mcg/actuation 2 puffs inhalation Q6H PRN cholecalciferol (vitamin D3) 50 mcg PO .QOD cyclobenzaprine 5 mg PO BEDTIME famotidine 20 mg PO BEDTIME ferrous sulfate 325 mg PO DAILY gabapentin 300 mg PO BID losartan 100 mg PO DAILY 90 days Tobacco use date assessed: 04/18/25 Dental Screening Dental Screen Date: 04/18/25 Did you have a dental visit in the last 12 months?: Yes Did you have a dental problem in the last 6 months where you did not have access to dental care?: Yes Was dental information given to patient?: Patient has dentist HPI Annual PE HPI Details - The patient is a 64-year-old male pres enting for a physical exam - Muscle cramps are effectively managed with magnesium supplementation, without adverse effects. - Heartburn is controlled with once-vanessa y famotidine, taken after dinner. - recent labs showed presence of mild a nemia. - Hyponatremia is a recurring issue, wit h sodium levels currently at 132 mmol/ L., currently asymptomatic - history of Pneumonia , treated with IV antibiotics, with residual cough but no dyspnea reported. - Hypertension is monitored, with elevat ed readings noted at night. - Cervical spine issues involve C4, C5, and C7, possibly contributing to toe numbness- EMG testing planned for further evaluation -up-to-date with vaccines, due for pneum onia vaccine at age 65 -due for repeat colonoscopy screening [facility] Dr. Child in 2026 [facility] Medical History Degenerative disc disease, cervical History of esophageal cancer Hyponatremia Vitamin D deficiency Mild intermittent asthma Neuropathic pain Anemia History of chemotherapy Finger laceration Arthritis GERD (gastroesophageal reflux disease) Impaired fasting glucose COPD (chronic obstructive pulmonary disease) Dyslipidemia Essential hypertension Tubular adenoma of colon IBS (irritable bowel syndrome) Heartburn symptom Surgical History History of esophagectomy Hx of repair of rotator cuff Hx of colonoscopy Family History Mother Colon cancer Social History Housing: House Patient Tobacco Use Status: Former Tobacco user Years Smoked: 30 yrs e-Cigarette/Vaping Use: Never Used Second Hand Smoke Exposure: No service: No Current occupational status: employed Current occupational exposures/hazards: No Cognitive needs: No Hearing needs: No Vision needs: Yes Questionnaire PHQ-9 Over the last 2 weeks, how often have you been bothered by any of the following problems? Depression Screening Interpretation: Negative Depression Screening Done: Yes Source: Developed by Drs. Frandy Noriega, Vania Flynn, George Summers and colleagues, with an educational faizan from [employer]. Thrive Questionnaire Date Thrive assessed: 01/10/25 I am a: Patient What is your living situation today?: I have a steady place to live Within the past 12 months, did the food you bought not last and you didn't have the money to get more?: Never true Within the past 12 months, did you worry whether your food would run out before you got money to buy more?: Never true Do you have trouble paying for medicines?: No Do you have trouble getting transportation to medical appointments?: No Do you have trouble paying your heating and electricity bill?: No Do you have trouble taking care of your child, family member or friend?: No Do you have trouble with day-to-day activities such as bathing, preparing meals, shopping, managing finances, etc.?: No Are you currently unemployed and looking for a job?: No Are you interested in more education?: No Please select the resources that you would like help with: None Currently or been in a relationship where the following occur: No concerns rep orted THRIVE Score: 0 SOREN-7 AMB Questionnaire SOREN-7 Date SOREN - 7 assessed: 12/10/24 Source: Developed by Drs. Frandy Noriega, aVnia Flynn, George Summers and colleagues, with an educational faizan from [employer]. ACT Questionnaire In the past 4 weeks, how much of the time did your asthma keep you from getting as much done at work, school or at home?: None of the time During the past 4 weeks, how often have you had shortness of breath?: Not at all During the past 4 weeks, how often did your asthma symptoms wake you up at night or earlier than usual in the morning?: Not at all During the past 4 weeks, how often have you had to use your rescue inhaler or nebulizer medication?: Not at all How would you rate your asthma control during the past 4 weeks?: Completely controlled ACT Interpretation: Negative Score: 25 Review of Systems Const Denies chills, Denies fatigue, Denies fever(s) and Denies weakness Eyes Denies change in vision ENT Reports no additional complaints Card Denies chest pain, Denies syncope, Denies rapid heart rate and Denies palpitations Resp Reports as per HPI and Denies wheezing GI Reports no additional complaints Reports no additional complaints Musc Details: Reports as per HPI Skin/Breast Denies lesions and Denies rash Neuro Reports as per HPI, Denies syncope and Denies weakness Psych Denies anxiety and Denies depression Endo Denies fatigue and Denies palpitations Shen/Lymph Reports no additional complaints Aller/Immun Denies wheezing Physical exam (Primary Care) Vital Signs: Last Vital Signs Temp 97.1 F 04/18/25 09:03 Pulse 91 04/18/25 09:03 Resp 16 04/18/25 09:03 BP 132/66 04/18/25 09:03 Pulse Ox 98 04/18/25 09:03 Oxygen Delivery Method Room Air 04/18/25 09:03 BMI result Body Mass Index 25.4 Tobacco/Smoking Status: Tobacco use Status Tobacco use date assessed 04/18/25 04/18/25 09:02 Patient Tobacco Use Status Former Tobacco user 04/18/25 08:55 e-Cigarette/Vaping Use Never Used 04/18/25 08:55 Depression Screening Interpretation: Negative Thrive Assessment: Date of Thrive Assessment Date Thrive assessed 01/10/25 04/18/25 08:55 Currently or been in a relationship where the following occur: No concerns reported Const General: healthy appearing, comfortable, no acute distress and alert [facility] Mouth: Normal oral and palatal mucosa present, tongue normal, oropharynx normal and moist mucous membranes Eyes General: appearance normal, both eyes and all related structures Neck Other: Supple with no lymphadenopathy full range of motion Neck: Yes no meningeal signs Chest Chest palpation & inspection: normal inspection of the chest and normal palpation of entire chest wall Resp Auscultation: clear to auscultation bilaterally Cardio Other: S1-S2 present regular rate and rhythm GI Palpation (GI): Soft to palpation, Tenderness to palpation present (GI) (Upper abdomen), no guarding and no masses General: Yes no CVA tenderness Back/Spine/Pelvis Back: no CVA tenderness and No back tenderness Skin General skin exam: no rashes or lesions noted Neuro General: no meningeal signs Extrem General: Yes full ROM, Yes no joint enlargement, Yes no clubbing, cyanosis or edema, Yes no calf tenderness and Yes normal gait Psych Appearance: grossly normal and well kempt Mental Status: mental status grossly normal Speech and movement: Normal speech and movement present Affect: normal affect Attitude: cooperative Results Reviewed Results Reviewed: Name: Santi William Age/Sex: 64/M : 1960 Unit#: [id number] Attend Dr: Erin Ceja MD Re01/14/25 Status: DEP REF Location: [facility] Disch: SPEC : [id number] OLIVA: 01/14/25 STATUS: COMP REQ : [id number] RECD: 01/14/[address]: Erin Ceja MD COMP: 01/14/25 ENTERED: 01/14/[address]: ORDERED: CBC Auto Diff Test Result Flag Reference WBC 8.5 4.8-10.8 X10*3/uL RBC 4.84 4.60-5.80 X10*6/uL HGB 14.5 14.0-18.0 g/dl HCT 41.5 L 42.0-52.0 % MCV 85.7 80.0-98.0 fL MCH 30.0 27.0-33.0 pg MCHC 34.9 31.0-36.0 g/dl RDW 13.2 11.0-16.0 % PLT 333 160-400 X10*3/uL MPV 10.0 9.4-12.4 fL Neut Pct Auto 64.4 45-73 % ImGran Pct Auto 0.8 H 0.0-0.4 % Lymp Pct Auto 15.9 L 20-40 % Graham Pct Auto 14.9 H 2-11 % Eos Pct Auto 3.4 0-4 % Baso Pct Auto 0.6 0-2 % NRBC Pct Auto 0.0 0.0-0.2 /100WBC ANC Neut Abs # 5.5 2.0-8.3 x10*3/uL ImGran Abs Auto 0.07 H 0.00-0.03 X10*3/uL Lymph Abs Auto 1.4 1.2-4.9 X10*3/uL Graham Abs Auto 1.3 H 0.1-1.2 X10*3/uL Eos Abs Auto 0.3 0.0-0.4 X10*3/uL Baso Abs Auto 0.1 0.0-0.2 X10*3/uL NRBC Abs Auto 0.000 0.0-0.012 X10*3/uL Coding Level of Care Code Est Pt Prev Care 40-64y(58047) Diagnoses Annual visit for general adult medical examination with abnormal findings Z00. Essential hypertension I10 Dyslipidemia E78.5 Impaired fasting glucose R73.01 Hyponatremia E87.1 Headache R51.9 Degenerative disc disease, cervical M50.30 Neuropathic pain M79.2 Additional Codes Asthma Control Questionnaire - ACT Interpretation: Negative ([id number]) Assessment & Plan Assessment & Plan (1) Annual visit for general adult medical examination with abnormal findings: Code(s): Z00.01 - Encounter for general adult medical examination with abnormal findings (2) Essential hypertension: Code(s): I10 - Essential (primary) hypertension Category: Medical (3) Dyslipidemia: Code(s): E78.5 - Hyperlipidemia, unspecified Category: Medical (4) Impaired fasting glucose: Code(s): R73.01 - Impaired fasting glucose Category: Medical (5) Hyponatremia: Code(s): E87.1 - Hypo-osmolality and hyponatremia Category: Medical (6) Headache: Code(s): R51.9 - Headache, unspecified Category: Medical (7) Degenerative disc disease, cervical: Code(s): M50.30 - Other cervical disc degeneration, unspecified cervical region Category: Medical (8) Neuropathic pain: Code(s): M79.2 - Neuralgia and neuritis, unspecified Category: Medical Plan The patient will continue magnesium supplementation for muscle cramps, as it is effective and well-tolerated. Famotidine will be continued once daily after dinner to manage heartburn effectively. The patient is advised to monitor blood pressure, especially at night, and ensure it is checked after resting for 30 minutes. For anemia, the patient will continue with iron supplements, and labs will be re-evaluated in six months to monitor hemoglobin levels. Hyponatremia will be managed by encouraging the patient to consume electrolyte-rich fluids like Gatorade, and sodium levels will be monitored. The patient is advised to avoid excessive water intake. For the residual cough post-pneumonia, no further antibiotics are needed, and the patient is encouraged to use the albuterol inhaler as needed, especially during winter months. Cervical spine issues and toe numbness will be further evaluated with EMG testing to assess nerve involvement. Preventative care includes scheduling a pneumonia vaccination at age 65, regular flu vaccinations, and a shingles vaccination appointment. The patient is also reminded to schedule an eye examination and maintain regular dental cleanings every six months. Follow-up is planned in six months to reassess blood pressure, anemia, and overall health status. Patient was informed and verbally consented to the use of an ambient scribe for clinic note documentation during this visit. Medications: New magnesium 200 mg PO DAILY 30 tabs 3RF
[2025-04-18 09:03] VITALS: BP 132/66; PULSE 91; RESP 16; TEMP 36.2; O2SAT 98; BMI 25.4
== END 2025-04-18 09:36 | disposition home or self-care (01) ==
LOC: HO.HMCC 08:22
PROVIDERS: PCP Internal Medicine; Visit Provider Internal Medicine
DX: Z00.01 Encounter for general adult medical examination with abnormal findings (principal); I10 Essential (primary) hypertension; E78.5 Hyperlipidemia, unspecified; R73.01 Impaired fasting glucose; E87.1 Hypo-osmolality and hyponatremia; R51.9 Headache, unspecified; M50.30 Other cervical disc degeneration, unspecified cervical region; M79.2 Neuralgia and neuritis, unspecified

== ENCOUNTER → 2025-04-18 08:21 | Outpatient (BNVA) | payer OTHER, SELFPAY | PROVIDERS: PCP Internal Medicine; Visit Provider Internal Medicine | DX: Z00.01 Encounter for general adult medical examination with abnormal findings (principal); I10 Essential (primary) hypertension; E78.5 Hyperlipidemia, unspecified; R73.01 Impaired fasting glucose; E87.1 Hypo-osmolality and hyponatremia; R51.9 Headache, unspecified; M50.30 Other cervical disc degeneration, unspecified cervical region; M79.2 Neuralgia and neuritis, unspecified; J45.20 Mild intermittent asthma, uncomplicated | CPT/HCPCS: 96160; 99396 ==